=== PATIENT | male | born 1935 | race Caucasian/White ===

== ENCOUNTER → 2017-01-08 | Outpatient (CLI) | payer OTHER ==
[~2017-01-08] MED LIST: ACTOS 30 MG TAB30 M1 PO; COUMADIN 5 MG TA5 M1 PO; DILTIAZEM 24HR240 M1 PO; FISH OIL 1,0001 EAC5 PO; LISINOPRIL40 MG PO; METFORMIN HCL1000 MG PO; MULTIVITAMINS1 EAC7 PO; ONGLYZA5 MG PO; PRAVASTATIN SOD40 MG PO; TAMSULOSIN HCL0.4 M1 PO
== END ==
LOC: RAD 13:06
DX: M25.532 Pain in left wrist (principal); M79.642 Pain in left hand

== ENCOUNTER 2018-07-05 14:01 | Inpatient (IN) | payer OTHER ==
[~2018-07-05] VITALS: Ht 167.6 cm; Wt 74.0 kg
[2018-07-05] VITALS (12 sets, daily range): BP systolic 83–141; BP diastolic 42–74
--- NOTE | ~2018-07-05 | HC ---
[facility] [place] [address] CONSULTATION Name: DILEEP DUBON Room #: 218-P [facility] IN .R.#: [id number] Admission: 07/05/18 ������������������ Attend Phys: Luis Murphy MD Discharge: ������������������ Date of : 35 Report #: [id number] THIS REPORT FOR: //name// CC: Luis Swanson DATE OF SERVICE: 07/06/2018 CONSULTATION: Infectious diseases. HISTORY OF PRESENT ILLNESS: The patient is an 83-year-old white male admitted to the hospital yesterday because of overwhelming weakness to the point he could hardly go to the bathroom to get his medications. In the ER, he was found to be in atrial fibrillation with rapid ventricular response and have evidence of urinary tract infection. Infectious disease consultation was requested when 2 blood cultures were drawn and both were positive as described below. PAST HISTORY: Significant for hypertension, hyperlipidemia in the setting of diabetes. The patient has history of benign prostatic hypertrophy and a past history of bladder cancer. SOCIAL HISTORY: The patient is and cares for his elderly . Denies use of tobacco or alcohol. REVIEW OF SYSTEMS: Unavailable as the patient was asleep and not disturbed. PHYSICAL EXAMINATION: GENERAL: The patient appears to be resting comfortably, in no distress. VITAL SIGNS: Show that the patient has been afebrile. Pulse has gone from 149-93 with treatment. SKIN: No rash, no lesions. CHEST: The patient is breathing easily. ABDOMEN: Belly is not distended. LABORATORY DATA: The white count is 16.2 in the ER and down to 13.6 with 82% polys, 2% bands. There are toxic granulations in Dohle bodies. Hemoglobin 11.2, platelet 213,000. Electrolytes were normal, bicarb was 17, BUN 54, creatinine has gone from 2.0-1.3, glucose 187. Lactate is 2.3, was stable after hydration. Liver function tests are normal. B-type natriuretic peptide was elevated at 6706. The urinalysis showed greater than 25 white cells per high powered field. Urine culture is pending. Blood cultures x 2 were obtained. The first has Gram-positive cocci. The second has gram-negative rods. ASSESSMENT AND PLAN: At this time, I suspect the patient probably has urosepsis with bacteremia due to gram-negative rods. The gram-positive blood cultures in one set most likely represents a contaminant. We will see what the [facility] [address] [address] CONSULTATION Name: DILEEP DUBON Room #: 218-P ADM IN .R.#: [id number] Admission: 07/05/18 ������������������ Attend Phys: Luis Murphy MD Discharge: ������������������ Date of : 35 Report #: [id number] identification is. If it is not Staphylococcus aureus and only present in one set, it is probably not significant. I will order 2 additional blood cultures for tonight and additional cultures if he continues to have fever. Rocephin should be excellent coverage for community-acquired urinary tract infection. The patient seemed to be doing better in the first 24 hours with suggesting that this probably is an active drug. We should have more information when the cultures and sensitivity from urine and blood isolates become available. For now, we will continue the patient on vancomycin plus Rocephin. We will repeat blood cultures. Dr. Burciaga will return tomorrow. He can do a more thorough history and physical examination as I do not want to disturb the patient this late at night. Thank you for this consultation. ��������������������������������������������� ���������������������������������������� By: ��������������������������������������������� 2236 0752 Ollie Quiñonez MD /nt
--- NOTE | ~2018-07-05 | D ---
[facility] [place] [place] [address] DISCHARGE SUMMARY Name: CASEDILEEP Room #: 218-P [facility] IN ..#: [id number] Admission: 07/05/18 ������������������ Attend Phys: Twin Swanson MD Discharge: 07/09/18 ������������������ Date of : 35 Report #: [id number] THIS REPORT FOR: //name// CC: Twin Negrete MD DATE OF SERVICE: 07/09/2018 SUMMARY OF HISTORY AND PHYSICAL: The patient had been busy caring for his sick and demented elderly spouse and kept getting weaker and more tired. He quit taking his medicines for a few days and restarted them. He would stay in bed and sleep all day, wake up the next day and even feel more tired. His family insisted that he come to the hospital for evaluation. In the Emergency Room, he was found to be septic from a urinary tract infection with rapid ventricular response to his atrial fibrillation and required admission. SUMMARY OF HOSPITAL COURSE: He was treated aggressively with IV fluids and IV antibiotics. He was seen in Cardiology consultation by Dr. Umaña because of his rapid atrial fibrillation. His medications were adjusted. A Rg catheter was needed to establish urine flow. He rapidly regained his strength. IMPORTANT LABORATORY DATA: His admitting creatinine was elevated at 2.0 with a BUN of 67. He was given aggressive IV fluids. At discharge, his creatinine had approached baseline at 0.9 with a BUN of 20. His sodium was 130 on admission. His fingerstick blood sugars varied between 138 and 302 managed by sliding scale insulin. The bilirubin was 1.0. His admitting albumin was low at 2.6. Lactic acid was elevated at 2.3 on admission and remained high at 2.3 when rechecked 5 hours later. His INR was mildly low at 1.3 on admission, but therapeutic at 2.1 at discharge. He was managed with Xarelto. Xarelto was given in the hospital for his Atrial Fib, but he has refused it in the past because of its expense. Admitting white blood cell count was elevated at 16.2 thousand, and steadily decreased to 9.8 thousand at discharge. Hemoglobin was 13.8 on admission and 10.7 at discharge. There was a left shift of 90% segmented neutrophils on admission. TSH was 1.146. Hemoglobin A1c was mildly elevated at 7.8. Urinalysis was grossly abnormal with 1+ blood, 1+ leukocytes, many bacteria and [facility] [place] [place] [address] [place] [address] DISCHARGE SUMMARY Name: CASEDILEEP Room #: 218-P DIS IN [facility]#: [id number] Admission: 07/05/18 ������������������ Attend Phys: Twin Swanson MD Discharge: 07/09/18 ������������������ Date of : 35 Report #: [id number] many white blood cells. Arterial blood gas on room air on admission showed a pH of 7.369, his pCO2 was abnormally low at 20.8, bicarbonate was low at 11.7. E. coli sensitive to all drugs was cultured from his urine and from his blood. A gram-positive cocci was cultured from his blood and was felt to be a contaminant. Portable chest x-ray showed aortic atherosclerosis and no other abnormalities. Early in the hospital stay, while standing at the sink and shaving, his heart rate went up to 140 again and his medications were adjusted. At discharge, he was able to stand and shave with a heart rate under 100. Prior to discharge on the morning of discharge, he had 150 mL of urine in his bladder before voiding, and afterwards his bladder was empty. Physical Therapy felt him safe to return home and noted that the patient had both walkers and canes at home. Home health will be arranged. He was seen for a cognitive assessment by Speech Therapy and after his initial presenting confusion, he had cleared with treatment of his infection. Comprehension was 90-100% correct. He scored 26/30 on the Rick Cognitive Assessment. He had mild memory impairment with 80-89% correct recall. DISCHARGE DIAGNOSES: 1. Severe sepsis from urinary tract infection, systemic inflammatory response syndrome with heart rate over 90 (139), respiratory rate over 20 (22), white blood cell count over 12,000 (16,200) with organ dysfunction, blood pressure under 90 (83/43 on admission), lactate over 2 (2.3 on admission and again when repeated 5 hours later) with a suspected/documented infection in the urine. 2. Escherichia coli infection in the urine. 3. Escherichia coli infection in the blood stream. 4. Acute kidney injury with creatinine of 2.0 on admission and 0.9 after recovery. 5. Chronic atrial fibrillation that experienced rapid ventricular response up to 140, managed with medication change. 6. History of hypertension -- however, blood pressure was low in the hospital. 7. History of benign prostatic hypertrophy with retention. 8. Metabolic encephalopathy -- on admission, the patient was confused and not making good choices. Speech Therapy evaluation documented the improvement in his cognition as his infection was controlled. 9. Severe malnutrition with an albumin under 2.8 (albumin 2.6 on admission). 10. Hyperlipidemia. 11. History of bladder cancer x 2. PLAN: The patient is returning home today on cefuroxime 500 mg twice daily for [facility] [place] [place] [address] [place] [address] DISCHARGE SUMMARY Name: DILEEP DUBON Room #: 218-P [facility] IN [facility]#: [id number] Admission: 07/05/18 ������������������ Attend Phys: Twin Swanson MD Discharge: 07/09/18 ������������������ Date of : 35 Report #: [id number] 10 days under the direction of Dr. Burciaga of Infectious Disease service. Home health is Mark at home that the patient has used in the past. He is encouraged to drink more water. MEDICATIONS: Metoprolol succinate is the new medication 50 mg tablets 1-1/2 tablet in the morning. His diltiazem extended release 180 mg that he was taking twice a day is now to be taken just once a day. He is to continue taking warfarin 5 mg daily with monthly protimes in my office. He has previously rejected Xarelto because of its cost. Alfuzosin extended release 10 mg 1 daily, Jardiance 25 mg 1 daily, pravastatin 40 mg 1 daily. He is to stop his metformin, but save his home supply for possible use later. He is to stop his lisinopril (20 mg and 40 mg tablets) for possible use later. He is to continue his fish oil capsules and multiple vitamin tablets. Note is made that it has been many years since he has taken Tradjenta or pioglitazone or tamsulosin, which the computer said were current medications. He is to see me in my office in 1 week and to bring all his medications with him and laboratory will be obtained. ��������������������������������������������� ���������������������������������������� By: ��������������������������������������������� 1918 06 Twin Swanson MD /nt
[2018-07-05 14:19] LABS: URINE BLOOD 1+ (Negative); URINE COLOR YELLOW; URINE GLUCOSE-RANDOM* 3+ (Negative); URINE KETONES TRACE (Negative); URINE NITRITE-REFLEX NEGATIVE (Negative); URINE PROTEIN (DIPSTICK) NEGATIVE (Negative); URINE UROBILINOGEN 0.2 E.U./dl (0.2-1.0)
[2018-07-05 14:20] LABS: URINE CLARITY SL HAZY; URINE LEUKOCYTES-REFLEX 1+ (Negative)
[2018-07-05 14:21] LABS: ICTOTEST (BILI CONFIRMATORY) Negative (Negative); URINE BILIRUBIN NEGATIVE (Negative)
[2018-07-05 14:23] LABS: SQUAMOUS >10 Many /LPF (0-3)
[2018-07-05 14:24] LABS: BACTERIA-REFLEX >30 Many /HPF (None Seen); URINE WBC-REFLEX >25 Many /HPF (0-5)
[2018-07-05 14:25] LABS: CRYSTALS None Seen /LPF (None Seen); HYALINE CASTS 4-10 Moderate /LPF (None Seen); URINE RBC 3-10 Few /HPF (0-2)
[2018-07-05 14:46] LABS: HEMOGLOBIN 13.8 gm/dL (14.0-18.0); MCH 31.4 pg (26.0-34.0); MCHC 33.6 g/dL (28.0-37.0); MCV 93.5 fL (80.0-100.0); PLATELET COUNT 239 thou/uL (150-400); RBC 4.38 mil/uL (4.50-6.00); RDW 13.7 % (10.5-14.5); WBC 16.2 thou/uL (4.0-11.0)
[2018-07-05 15:11] LABS: ANION GAP 20 mmol/L (7-16); BUN 67 mg/dL (7-18); CALCIUM 8.4 mg/dL (8.5-10.1); CHLORIDE 95 mmol/L (98-107); CO2 15 mmol/L (21-32); GLUCOSE 202 mg/dL (74-106); POTASSIUM 4.3 mmol/L (3.5-5.1); SODIUM 130 mmol/L (136-145)
[2018-07-05 15:21] LABS: ALBUMIN 2.6 g/dL (3.4-5.0); SGOT 23 U/L (15-37); SGPT 19 U/L (30-65); TOTAL PROTEIN 6.8 g/dL (6.4-8.2); TROPONIN-I <0.06 ng/mL (<0.06)
[2018-07-05 15:35] LABS: ABSOLUTE NEUTROPHILS 13.6 thou/uL (1.4-8.2); ATYPICAL LYMPHS 1 %
[2018-07-05 15:37] LABS: TOXIC GRANULATION 1+
[2018-07-05 16:10] LABS: INR 1.3; PROTIME 13.1 Seconds (9.3-11.4)
[2018-07-05 19:29] LABS: BE(vivo) -11.2 mmol/L (-2 to +3); HCO3 11.7 mmol/L (22.0-26.0); pH 7.369 (7.360-7.450); sO2 97.6 % (92.0-98.0)
[2018-07-05 19:30] LABS: PCO2 20.8 mmHg (35.0-45.0)
--- NOTE | 2018-07-05 19:52 | NUR ---
ASSUMED CARE OF PT AT APPROX 1700. PT A&OX4, UP WITH ASSIST OF ONE. PT HAD HEART RATE OF [address] AGUILERA ORDERED CARDIZEM DRIP. PT ADMISSION COMPLETED EXCEPT FOR MED REC DUE TO PT NOT KNOWING HIS MEDICATIONS. DAUGHTER MARICRUZ SAID SHE WOULD [facility]ING [facility] L[facility] OR TOMORROW. MEDS FROM PHARMACY SEEN BY DR. AGUILERA. WILL CONT WITH POC
[2018-07-05] MEDS ORDERED: ALFUZOSIN HCL10 MG PO (20:16)
[2018-07-05] MEDS ORDERED: JARDIANCE25 MG PO (20:16)
[2018-07-05] MEDS ORDERED: AMOX TR-K CLV1 EAC4 PO (20:17)
[2018-07-05] MEDS ORDERED: PRAVACHOL40 MG PO (20:17)
[2018-07-05] MEDS ORDERED: CEFDINIR300 MG PO (20:17)
[2018-07-05] MEDS ORDERED: DILT-XR180 MG PO (20:18)
[2018-07-05] MEDS ORDERED: LISINOPRIL20 MG PO (20:18)
[2018-07-06] VITALS (10 sets, daily range): BP systolic 84–144; BP diastolic 44–83
[2018-07-06 05:16] LABS: HEMATOCRIT 35.5 % (42.0-52.0); MCH 30.8 pg (26.0-34.0); MCV 93.3 fL (80.0-100.0); RBC 3.8 mil/uL (4.50-6.00); RDW 13.7 % (10.5-14.5); WBC 13.6 thou/uL (4.0-11.0)
[2018-07-06 05:22] LABS: HEMOGLOBIN 11.7 gm/dL (14.0-18.0)
[2018-07-06 05:31] LABS: ALBUMIN 2.2 g/dL (3.4-5.0); ANION GAP 15 mmol/L (7-16); BUN 54 mg/dL (7-18); CALCIUM 7.3 mg/dL (8.5-10.1); CHLORIDE 102 mmol/L (98-107); CO2 17 mmol/L (21-32); CREATININE 1.3 mg/dL (0.7-1.3); DIRECT BILIRUBIN 0.1 mg/dL (<0.1-0.3); GLUCOSE 155 mg/dL (74-106); INR 1.4; POTASSIUM 3.8 mmol/L (3.5-5.1); PROTIME 14.6 Seconds (9.3-11.4); SGOT 18 U/L (15-37); SGPT 12 U/L (30-65); SODIUM 134 mmol/L (136-145); TOTAL BILIRUBIN 0.6 mg/dL (<0.1-1.0); TOTAL PROTEIN 5.7 g/dL (6.4-8.2); TROPONIN-I <0.06 ng/mL (<0.06)
--- NOTE | 2018-07-06 05:41 | NUR ---
ASSUMED PT'S AT 1905; PT. ON BED AOX4; DAUGHTER AT THE BED SIDE; DURING ASSESSMENT NO C/O PAIN; CARDIZEM TITRATE ACCORDING TO HR & BP; PER ORDER PHYSICIAN NOTIFIED WHEN CARDIZEM AT 20MG/H & HR IN THE 120's-130's; ORDERS RECEIVED; DR. MORALEZ CALLED AT 2150; ORDER RECEIVED; IV & PO LOPRESSOR GIVEN PER ORDER; DR. AGUILERA NOTIFIED ABOUT POST VOID RESIDUAL; ORDERS RECEIVED; AT 0035 PT'S SBP ON THE 80'S; PHYSICIAN NOTIFIED; ORDERS RECEIVED; AT 0335 DR. AGUILERA NOTIFIED ABOUT CATHETER OUTPUT; NO NEW ORDERS; PT. NOT ABLE TO REST THROUGH THE NIGHT; NO C/O DIZZINESS OR HEADACHE; PT. REST FOR A FEW HOURS; AT 0400 SBP ON THE 90'S; AT 0500 SBP 101; WILL KEEP MONITORING; ASSESSMENT CHARGED; FOLLOWING POC; WILL PASS ON REPORT.
--- NOTE | 2018-07-06 12:50 | NUR ---
PT DID NOT REMEMBER TELEMETRY INTERFERENCE CONVERSATION AND LETTER GIVEN TO HIM AT ADMISSION. PT WAS SEPTIC AND ALTHOUGH ABLE TO ANSWER ORIENTATION QUESTIONS ACCURATELY, MAY HAVE NOT COMMPREHENDED ALL CARE PLANS DISCUSSIONS AND TELEMETRY DISCUSSION. TODAY AT 1245 I WENT OVER TELEMETRY AND LETTER WITH PT. I ASKED DAUGHTER, WHO WAS WITH PT AT ADMISSION, IF SHE REMEMBERED CONVERSATION FROM YESTERDAY AND SHE STATED THAT SHE DID. PT SIGNED LETTER FOR THIS NURSE AND WILL BE PLACED IN CHART. WILL CONT TO EDUCATE PT REGARDING TELEMETRY INFERENCE.
--- NOTE | 2018-07-06 13:52 | NUR ---
MEDICATIONS: PT AND FAMILY DO NOT KNOW WHAT MEDS PT IS TAKING. PT STATES HE ONLY GETS HIS MEDS FROM [facility] IN [place]. THAT PHARMACY CALLED AND PT MED LIST UPDATED. PT DOES NOT RECOGNIZE THE NAMES OF MEDS THAT [facility] HAS HIM TAKING, SO PT MAY NOT BE COMPLIANT WITH HIS MEDS. WILL PUT IN CASE MANAGEMENT CONSULT FOR HOME HEALTH FOR MED MANAGEMENT. WILL UPDATE DR. AGUILERA.
--- NOTE | 2018-07-06 16:40 | NUR ---
ASSUMED CARE OF PT AT 0700. PT A&OX4, FORGETFUL. PT SEEN BY DR. MORALEZ AND MEDS ORDERED. PT NOW HAS CONTROLLED RATE AFIB ON TELEMETRY. BLOOD PRESSURE SLIGHTLY LOW AND BEING MONITORED. PT HAD FAMILY VISITING TODAY. SHOWERED WITH ASSISTANCE. PT UNSTEADY WITH MULTIPLE LINES AND FALL PRECAUTIONS MAINTAINED. WILL CONT WITH POC
--- NOTE | 2018-07-06 19:34 | NUR ---
INFECTIOUS DISEASE CONSULT CALLED BY ROENTGENOLOGY TEACHER, BUT NO NOTE LEFT BY ID DOCTOR. I DID NOT OBSERVE AN ID DOCTOR ON THE UNIT TODAY. WILL CALL CONSULT AGAIN.
--- NOTE | 2018-07-06 22:39 | EKG ---
[address] [place] [address] ELECTROCARDIOGRAM REPORT Name: DILEEP DUBON Room #: 218-P ADM IN M.R.#: [id number] ������������������ Admission: 07/05/18 ������������������ Attend Phys: Luis Murphy MD Discharge: ������������������ Date of : 35 Report #: [id number] ����������������������������������������������������������������� [id number] THIS REPORT FOR: //name// [facility] [place] [place] ED Test Date: 2018-07-05 Test Time: 14:28:02 Pat Name: DILEEP DUBON Department: Room: 218 Gender: M Manager Of Case: PABLO : 1935 Requested By: Sheri Pizarro Order Number: [id number] MD: Duy Burciaga Measurements Intervals [place] Rate: 152 P: IN: QRS: 59 QRSD: 136 T: -40 QT: 316 QTc: 503 Interpretive Statements Atrial fibrillation with RVR Right bundle branch block No previous ECG available for comparison Electronically Signed On 07-06-2018 22:39:31 CDT by Duy Burciaga [email or web address] ��������������������������������������������� <ELECTRONICALLY SIGNED> ���������������������������������������� By: Duy Burciaga MD ��������������������������������������������� 07/06/18 2239 1428 1428 MD PARIS Boyle
--- NOTE | 2018-07-06 22:42 | EKG ---
[address] [address] ELECTROCARDIOGRAM REPORT Name: DILEEP DUBON Room #: 218-P ADM IN M.R.#: [id number] ������������������ Admission: 07/05/18 ������������������ Attend Phys: Luis Murphy MD Discharge: ������������������ Date of : 35 Report #: [id number] ����������������������������������������������������������������� [id number] THIS REPORT FOR: //name// [facility] Test Date: 2018-07-06 Test Time: 07:51:11 Pat Name: DILEEP DUBON Department: Room: 218 P Gender: M Staff Climate Scientist: DOREEN : 1935 Requested By: Mayank Umaña Order Number: [id number] MD: Duy Burciaga Measurements Intervals [place] Rate: 124 P: SD: QRS: 43 QRSD: 141 T: -20 QT: 357 QTc: 513 Interpretive Statements Atrial fibrillation Right bundle branch block Baseline wander in lead(s) V1 No previous ECG available for comparison Electronically Signed On 07-06-2018 22:42:40 CDT by Duy Burciaga [email or web address] ��������������������������������������������� <ELECTRONICALLY SIGNED> ���������������������������������������� By: Duy Burciaga MD ��������������������������������������������� 07/06/18 2242 075 075 Duy Burciaga MD /IRLANDA
[2018-07-06 22:53] LABS: HEMOGLOBIN 12.3 gm/dL (14.0-18.0); MCH 30.7 pg (26.0-34.0); MCHC 33.3 g/dL (28.0-37.0); MCV 92.2 fL (80.0-100.0); PLATELET COUNT 234 thou/uL (150-400); RBC 4.01 mil/uL (4.50-6.00); RDW 13.7 % (10.5-14.5)
[2018-07-06 23:14] LABS: CALCIUM 8.1 mg/dL (8.5-10.1); CREATININE 1.1 mg/dL (0.7-1.3); POTASSIUM 3.6 mmol/L (3.5-5.1)
[2018-07-06 23:17] LABS: ABSOLUTE NEUTROPHILS 10.9 thou/uL (1.4-8.2)
[2018-07-07 01:11] VITALS: BP 137/44
[2018-07-07 04:30] VITALS: BP 131/62
[2018-07-07 05:07] LABS: HEMATOCRIT 34.5 % (42.0-52.0); HEMOGLOBIN 11.7 gm/dL (14.0-18.0); MCH 31.3 pg (26.0-34.0); MCHC 33.9 g/dL (28.0-37.0); MCV 92.2 fL (80.0-100.0); PLATELET COUNT 227 thou/uL (150-400); RBC 3.74 mil/uL (4.50-6.00); RDW 13.5 % (10.5-14.5); WBC 11.4 thou/uL (4.0-11.0)
[2018-07-07 05:25] LABS: INR 1.6; PROTIME 16.2 Seconds (9.3-11.4)
[2018-07-07 05:32] LABS: CALCIUM 7.6 mg/dL (8.5-10.1); POTASSIUM 3.5 mmol/L (3.5-5.1)
[2018-07-07 07:48] LABS: ABSOLUTE NEUTROPHILS 9.8 thou/uL (1.4-8.2); ANISOCYTOSIS 1+; METAMYELOCYTES 2 %; MYELOCYTES 2 %
--- NOTE | 2018-07-07 07:54 | NUR ---
ASSUME CARE 1900. PT/VITALS STABLE. DENIES ANY PAIN AT THIS TIME. UP TO BATHROOM WITH WALKER. JIMENEZ IN WITH COPIOUS AMOUNT OF URINE NOTED. ADDEQUATE REST NOTED. COMMUNICATED TO DAY NURSE FOR THE NEED FOR BLOOD CULTURES X 2 WITHIN 15 MINS APART IF TEMP GOES ABOVE 101.0. ASSESSMENT CHARTED. PROGRESSING WELL WITH POC. PLAN IS TO CONTINUE TO TREAT WITH ABX, CONTINUE TO RUN FLUIDS AND MONITOR HEART RATE AND RHYTHM. WILL CONTINUE TO FOLLOW WITH POC
[2018-07-07 08:00] VITALS: BP 132/83
--- NOTE | 2018-07-07 11:17 | H ---
[facility] [place] [address] HISTORY AND PHYSICAL Name: DILEEP DUBON Room #: 218-P ADM IN .R.#: [id number] Admission: 07/05/18 ������������������ Attend Phys: Luis Murphy MD Discharge: ������������������ Date of : 35 Report #: [id number] THIS REPORT FOR: //name// CC: Luis Negrete MD DATE OF SERVICE: 07/05/2018 CHIEF COMPLAINT: "I feel weak and tired." HISTORY OF PRESENT ILLNESS: The patient is an 83-year-old white male who has recently been caring for a sick and demented elderly spouse and noticed in the last several days that he had been getting weaker and more tired. He quit taking his medicines for a few days, but finally restarted them yesterday. Because he was too tired to get out of bed to even take himself to the bathroom, his grandchildren and children insisted that he come to the hospital for further evaluation and treatment. In the Emergency Room, he was found to have elevated lactic acid levels and atrial fibrillation with rapid ventricular response in the setting of significant pyuria. He was felt to have sepsis and was admitted for further evaluation and treatment. His white count is also elevated in the 16,000 range. PAST MEDICAL HISTORY: Type 2 diabetes mellitus, hypertension, hyperlipidemia, benign prostate hypertrophy, history of bladder cancer status post surgeries x 2, he has a remote history of ear surgeries and has had recurrent ear infections ever since, over the years. FAMILY HISTORY: Not contributory. SOCIAL HISTORY: He is retired, lives with his and present during the visit today is his daughter. He is a nonsmoker, nondrinker. He does not use recreational drugs. REVIEW OF SYSTEMS: He denies chest pain or shortness of breath, but really feels tired with the slightest exertion. He denies any trauma or falls. He denies any mental status issues or hallucinations. No swelling in his arms or legs. No back pain. No difficulties with urination lately. He denies feeling sick, other than just being tired easily. His nurse brought to my attention that when the patient had been brought in, he had soiled himself with stool and urine and was unaware. PHYSICAL EXAMINATION: VITAL SIGNS: In the Emergency Room, vital signs showed a pulse oximetry of 96% on room air with blood pressure of 83/43, pulse of 93, temperature of [address] [address] HISTORY AND PHYSICAL Name: DILEEP DUBON Room #: 218-P [facility] IN .R.#: [id number] Admission: 07/05/18 ������������������ Attend Phys: Luis Murphy MD Discharge: ������������������ Date of : 35 Report #: [id number] centigrade, and respiratory rate of 16. The reported weight was 156 pounds. GENERAL: This is a pleasant, slightly unkempt, elderly white male with a pleasing personality. HEENT: The extraocular muscles are intact. Oropharynx is dry and pink without lesions or exudates. SKIN: Notably pale and this is confirmed by his daughter who was also present during exam. NECK: Without adenopathy, thyromegaly, mass, JVD or bruit. LUNGS: Fairly clear bilaterally. CARDIAC: Reveals an irregularly irregular tachycardia. ABDOMEN: Soft. Bowel sounds are present, no visceromegaly or masses. Spine is nontender without lesions or pressure wounds. EXTREMITIES: Without cyanosis or clubbing or peripheral edema. Peripheral pulses are easily palpated in all four distal extremities. His peripheral pulses are slightly thready. ASSESSMENT AND PLAN: 1. Suspected sepsis due to urinary tract infection as evidenced by hypotension, tachycardia, leukocytosis, malaise and elevated lactic acid level. I agree with the Emergency Room physician's plan to start the patient on antibiotics and aggressive rehydration. I note the patient has been given 2 liters of saline in the ER and I will continue IV fluids on the CCU. The patient needs to have better rate control so as to improve his cardiac output, especially in a possible setting of sepsis and we will start him on the diltiazem drip rather than bolusing him and then titrate for rate control as able. The patient needs to have an arterial blood gas ordered on room air. Since he is already on oxygen that will be delayed 20 minutes after he take the oxygen off. Prognosis is guarded at this time. 2. Type 2 diabetes mellitus with elevated serum creatinine of 2.0 today and lactic acidosis. I will hold the metformin for now. It is not clear that this is necessarily the cause of his lactic acidosis. It does appear that his renal function is acutely worsened and he can be adequately maintained with insulin injections until such time as his baseline renal function is reestablished and is good. 3. Hypertension history - I will hold the YOSHI inhibitor, lisinopril for now because of his rising creatinine. Given the known benefits for diabetic patients, this will need to be resumed in the near future. 4. Benign prostate hypertrophy. We will continue the patient on alpha norma therapy. 5. History of bladder cancer x 2, for which he follows with Dr. Newton Negrete. 6. History of ear infections. He feels that the symptoms today are emanating from his left ear and on exam that side showed a much more dull tympanic membrane, although both tympanic membranes are white. The right tympanic membrane is shiny. Neither exam was marked by any erythema or tenderness or adenopathy. 7. As I do not know this patient that well, I suspect he minimizes his somatic [facility] [address] [place] [address] HISTORY AND PHYSICAL Name: CASE,DILEEP Lynch Room #: 218-P ADM IN M.R.#: [id number] Admission: 07/05/18 ������������������ Attend Phys: Luis Murphy MD Discharge: ������������������ Date of : 35 Report #: [id number] symptoms in favor of caring for the medical problems that his has. I will discuss this case further with Dr. Swanson after the weekend. For now, we will maintain a very cautious approach and aggressive monitoring. ��������������������������������������������� <ELECTRONICALLY SIGNED> ���������������������������������������� By: Luis Murphy MD ��������������������������������������������� 07/07/18 1117 1823 193 Luis Murphy MD /nt
[2018-07-07 12:24] VITALS: BP 121/52
--- NOTE | 2018-07-07 12:26 | 2DMMODE ---
[facility] [address] [place] [address] 2 D/M-MODE ECHOCARDIOGRAM Name: CASEDILEEP Room #: 218-P [facility]#: [id number] ������������� Admission: 07/05/18 ������������� Attend Phys: Twin Swanson, Discharge: ��� ������������� ��� Date of : 35 Date of Service: 07/07/18 1225 �� Report #: [id number] �������� ��������������������������������������������[id number] THIS REPORT FOR: //name// APPROVED REPORT Study performed: 07/07/2018 08:07:21 EXAM: Comprehensive 2D, Doppler, and color-flow Echocardiogram Patient Location: Bedside Room #: 218 Status: routine BSA: 1.79 HR: 105 bpm BP: 131/62 mmHg Rhythm: Atrial Fibrillation Other Information Study Quality: Adequate Indications Diabetes Atrial Fibrillation Hypertension/HDD 2D Dimensions RVDd: 36.04 mm IVSd: 13.08 (7-11mm) LVOT Diam: 21.99 (18-24mm) LVDd: 39.00 mm PWd: 10.13 (7-11mm) Ascending Ao: 29.63 (22-36mm) LVDs: 24.73 (25-40mm) Aortic Root: 33.26 mm IVC: 13.00 mm Volumes Left Atrial Volume (Systole) Single Plane 4CH: 70.16 mL Single Plane 2CH: 82.25 mL LA ESV Index: 46.00 mL/m2 Aortic Valve AoV Peak James.: 1.14 m/s AO Peak Gr.: 5.21 mmHg LVOT Max P.93 mmHg LVOT Max V: 0.86 m/s ELIZABETH Vmax: 2.84 cm2 Mitral Valve MV Decel. Time: 154.53 ms [facility] [address] [place] [address] 2 D/M-MODE ECHOCARDIOGRAM Name: DIELEP DUBON Room #: 218-P [facility]#: [id number] ������������� Admission: 07/05/18 ������������� Attend Phys: Twin Swanson, Discharge: ��� ������������� ��� Date of : 35 Date of Service: 07/07/18 1225 �� Report #: [id number] �������� ��������������������������������������������[id number] MV E Max James.: 0.96 m/s IVRT: 89.20 ms Pulmonary Valve PV Peak James.: 0.92 m/s PV Peak Gr.: 3.44 mmHg Tricuspid Valve TR Peak James.: 2.93 m/s RAP Estimate: 5.00 mmHg TR Peak Gr.: 34.25 mmHg PA Pressure: 39.00 mmHg Left Ventricle The left ventricle is normal size. There is normal left ventricular wall thickness. The left ventricular systolic function is normal. The left ventricular ejection fraction is within the normal range. LVEF is 60-65%. This study is not technically sufficient to allow evaluation of the LV diastolic function due to atrial fibrillation. Right Ventricle The right ventricle is normal size. The right ventricular systolic function is normal. Atria Left atrium is moderately dilated. Right atrium is mildly dilated. Aortic Valve The aortic valve is normal in structure. Mild aortic regurgitation. There is no aortic valvular stenosis. Mitral Valve The mitral valve is normal in structure. There is no mitral valve regurgitation noted. No evidence of mitral valve stenosis. Tricuspid Valve The tricuspid valve is normal in structure. Mild tricuspid regurgitation. PAP is estimated at 39 mmHg. Pulmonic Valve The pulmonary valve is normal in structure. There is no pulmonic valvular regurgitation. Great Vessels The aortic root is normal in size. IVC is normal in size and collapses >50% with inspiration. [facility] [address] [place] [address] 2 D/M-MODE ECHOCARDIOGRAM Name: CASE,DILEEP Lynch Room #: 218-P ADM IN ..#: [id number] ������������� Admission: 07/05/18 ������������� Attend Phys: Twin Swanson, Discharge: ��� ������������� ��� Date of : 35 Date of Service: 07/07/18 1225 �� Report #: [id number] �������� ��������������������������������������������[id number] Pericardium Trace pericardial effusion. <Conclusion> The left ventricle is normal size. LVEF is 60-65%. This study is not technically sufficient to allow evaluation of the LV diastolic function due to atrial fibrillation. The right ventricle is normal size. Left atrium is moderately dilated. Right atrium is mildly dilated. Mild aortic regurgitation. There is no mitral valve regurgitation noted. Mild tricuspid regurgitation. PAP is estimated at 39 mmHg. The aortic root is normal in size. Trace pericardial effusion. ��������������������������������������������� <ELECTRONICALLY SIGNED> ���������������������������������������� By: Mayank Umaña MD, FACC ��������������������������������������������� 07/07/18 1225 1225 1225 Mayank Umaña MD, FACC /INF
[2018-07-07 13:08] LABS: GLYCOHEMOGLOBIN (HGB A1C) 7.8 % (4.8-5.6)
--- NOTE | 2018-07-07 14:24 | NUR ---
Met with patient and at bedside. recently dc from [facility]. Patient reports he/ live together in home with all needs on one level. Patient reports independent with adls and self care. he cont to drive. He reports he takes his medications independently and uses a pill box. He reports he checks his medications as well. RN mentioned HH may be beneficial for medication monitor initially from hospital but patient denies need at this time. Casemgt following for dc planning.
--- NOTE | 2018-07-07 15:12 | NUR ---
PT IS ALERT AND ORIENTED X4. LUNGS ARE CLEAR ON ROOM AIR. AFIB ON THE MONITOR REGULAR DIET TOLERATING WELL. JIMENEZ CATH TO DD WITH CLEAR YELLOW URINE PRESENT. ASSIST X1 WITH AMBULATION. ABDOMEN IS ROUND AND SOFT. NO ISSUES OR CONCERNS NOTED AT THIS TIME WITH CARE OF PT AND NURSING CARE. CALL LIGHT WITHIN REACH IF NEEDS ASSISTANCE
[2018-07-07 16:00] VITALS: BP 126/60
[2018-07-07 20:00] VITALS: BP 145/52
--- NOTE | 2018-07-08 03:29 | NUR ---
ASSUMED PT CARE AT 1900. PT A/OX4, FORGETFUL, VITAL SIGN STABLE, ASSESSMENT CHARTED. NO COMPLAINTS OF PAIN/CHEST PAIN. PT AFIB ON THE MONITOR, RATE CONTROLLED. MEDS ADMINISTERED SCHEDULED. PT RESTED WELL THROUGH THE NIGHT. PROGRESSING TOWARD PLAN OF CARE. WILL CONTINUE TO MONITOR.
[2018-07-08 04:00] VITALS: BP 130/57
[2018-07-08 04:01] LABS: HEMATOCRIT 31.7 % (42.0-52.0); HEMOGLOBIN 10.7 gm/dL (14.0-18.0); MCH 31.4 pg (26.0-34.0); MCHC 33.8 g/dL (28.0-37.0); PLATELET COUNT 228 thou/uL (150-400); RBC 3.41 mil/uL (4.50-6.00); RDW 13.6 % (10.5-14.5); WBC 9.8 thou/uL (4.0-11.0)
[2018-07-08 04:05] LABS: PROTIME 21.2 Seconds (9.3-11.4)
[2018-07-08 04:19] LABS: ALBUMIN 1.9 g/dL (3.4-5.0); CALCIUM 7.7 mg/dL (8.5-10.1); CREATININE 0.9 mg/dL (0.7-1.3); POTASSIUM 3.4 mmol/L (3.5-5.1); TOTAL BILIRUBIN 0.3 mg/dL (<0.1-1.0); TOTAL PROTEIN 5.1 g/dL (6.4-8.2)
[2018-07-08 06:34] LABS: ABSOLUTE NEUTROPHILS 6.9 thou/uL (1.4-8.2)
[2018-07-08 06:35] LABS: ANISOCYTOSIS 1+; PLATELET ESTIMATE NORMAL; POLYCHROMASIA 1+
[2018-07-08 06:36] LABS: LARGE PLATELETS FEW
[2018-07-08 07:44] VITALS: BP 150/79
[2018-07-08 15:07] VITALS: BP 100/45
--- NOTE | 2018-07-08 18:14 | NUR ---
FOR DR. DE LA O: AT 1800, PT URINATED 200ML, BLADDER SCANNED AND HAD 22ML RESIDULE.
[2018-07-08 19:34] VITALS: BP 127/84
--- NOTE | 2018-07-08 19:37 | NUR ---
ASSUMED CARE OF PT AT 0700. PT A&OX4, UP WITH WALKER AND STANDBY. PT VITAL SIGNS WITHIN NORMAL LIMITS. PT AFIB ON TELEMETRY WITH CONTROLLED RATE. OCCUPATIONAL THERAPY HAD PT UP IN BATHROOM AND PT'S HEART RATE UP IN 150'S. ONE TIME LOPRESSER IV PUSH GIVEN AND METOPROLOL PO DOSAGE INCREASED (ORDER PER KRIT). PT AMBULATED HALLWAYS AFTER LUNCH AND HEART RATE IN LOW 100'S. WILL CONT WITH POC. RE-REVIEWED TELEMETRY LETTER WITH PT.
--- NOTE | 2018-07-09 03:31 | NUR ---
ASSUMED PT CARE AT 1900. A/OX4, OCCASSIONALLY FORGETFUL. VITAL SIGNS STABLE, ASSESSMENT CHARTED. NO COMPLAINTS OF PAIN. RESTED WELL THROUGH THE NIGHT. MEDICATIONS GIVEN SCHEDULED. PROGRESSING TOWARD PLAN OF CARE. WILL CONTINUE TO MONITOR.
[2018-07-09 04:52] VITALS: BP 135/55
[2018-07-09 04:52] LABS: INR 2.1
--- NOTE | 2018-07-09 06:09 | NUR ---
DR. DE LA O, PT VOIDED AT ABOUT 0508. PRE-VOID BLADDER SCAN WAS 146ML. POST-VOID BLADDER SCAN WAS 0.0ML.
[2018-07-09 08:31] VITALS: BP 135/63
[2018-07-09 10:55] VITALS: BP 119/66
--- NOTE | 2018-07-09 14:47 | NUR ---
MET WITH PATIENT AND DISCUSSED THERAPY EVALS AND POSSIBLE HH AT [place]. PATIENT DOES NOT FEEL HE NEEDS HH CARE BUT AGREEABLE TO REC IF ORDERED. NO PREFERENCE [facility] TO EVAL.
[2018-07-09 15:25] VITALS: BP 105/87
--- NOTE | 2018-07-09 16:07 | NUR ---
ASSESSMENT CHARTED - MEDS PER MAR - NO CO'S OF PAIN OR NAUSEA. EMILIE DIET AND FLUIDS. UP WITH STBY ASSIST TO THE BATHROOM - UP IN THE CHAIR. ACCUCHECKS CHARTED - COVERED PER SSI PRN. NO CO'S AT THE PRESENT TIME, STATES COMFORTABLE.
[2018-07-09 16:50] VITALS: BP 105/87
--- NOTE | 2018-07-09 16:52 | NUR ---
PT TO DISCHARGE TODAY TO HOME WITH HH NOTIFIED [facility] OF REFERRAL AND THEY DO NOT SERVICE [place]. FAXED REFERRAL TO [facility] SPOKE WITH NATALIA AND SHE RECEIVED REFERRAL AND CAN ACCEPT PT AT DC. DCP TO FAX DC ORDERS ONCE FINALIZED.
[2018-07-09] MEDS ORDERED: METOPROLOL SUCC50 MG PO (17:13)
[2018-07-09] MEDS ORDERED: DILTIAZEM ER180 MG PO (17:13)
[2018-07-09] MEDS ORDERED: CEFUROXIME500 MG PO (17:17)
[2018-07-09 17:50] VITALS: BP 105/87
--- NOTE | 2018-07-09 18:29 | NUR ---
PT HOME THIS EVEINING. INSTRUCTION RE HOME MEDS/ CARE AND FOLLOW UP GIVEN TO PATIENT AND DAUGHTER - STATED UNDERSTANDING ON INSTRUCTION GIVEN. PT LEFT UNIT VIA WHEELCHAIR- HOME VIA PVT VEHICLE ACCOMAPANIED BY DAUGHTER - MONITOR AND IV REMOVED PRIOR TO D/C. NO CO'S AT TIME OF D/C.
--- NOTE | 2018-07-10 13:30 | NUR ---
PT DISCHARGED LATE YESTERDAY AFTER DCP LEFT FOR THE DAY. FAXED DC ORDERS/SUMMARY TO [facility] SPOKE WITH NATALIA IN INTAKE SHE RECEIVED DC ORDERS AND WILL SEE PT TODAY.
== END 2018-07-09 18:41 | disposition home health service (06) | DRG 871 ==
LOC: ER 14:01 → EROBS 15:49 → 2N 15:49 → ENTRNSPT 07-09 18:28 → 2N 07-09 18:41
PROVIDERS: Emergency Medicine; Internal Medicine; Internal Medicine Infectious Disease; Physician Assistant; ADMIT Internal Medicine
DX: A41.51 Sepsis due to Escherichia coli [E. coli] (principal); G93.41 Metabolic encephalopathy; E43 Unspecified severe protein-calorie malnutrition; N12 Tubulo-interstitial nephritis, not specified as acute or chronic; N17.9 Acute kidney failure, unspecified; R65.20 Severe sepsis without septic shock; F03.90 Unspecified dementia, unspecified severity, without behavioral disturbance, psychotic disturbance, mood disturbance, and anxiety; H66.92 Otitis media, unspecified, left ear; I12.9 Hypertensive chronic kidney disease with stage 1 through stage 4 chronic kidney disease, or unspecified chronic kidney disease; E11.22 Type 2 diabetes mellitus with diabetic chronic kidney disease; N18.9 Chronic kidney disease, unspecified; I48.2 Chronic atrial fibrillation; N40.0 Benign prostatic hyperplasia without lower urinary tract symptoms; E78.5 Hyperlipidemia, unspecified; E78.00 Pure hypercholesterolemia, unspecified; Z79.01 Long term (current) use of anticoagulants; Z79.84 Long term (current) use of oral hypoglycemic drugs; Z79.899 Other long term (current) drug therapy; Z87.891 Personal history of nicotine dependence; Z68.26 Body mass index [BMI] 26.0-26.9, adult; Z85.51 Personal history of malignant neoplasm of bladder
CPT/HCPCS: 10081

== ENCOUNTER 2019-02-09 11:45 | Emergency (ER) | payer OTHER ==
[~2019-02-09] VITALS: Ht 167.6 cm; Wt 69.0 kg
[~2019-02-09 11:45] MED LIST changes: +ALFUZOSIN HCL10 MG PO; +AMOX TR-K CLV1 EAC4 PO; +CEFDINIR300 MG PO; +CEFUROXIME500 MG PO; +DILT-XR180 MG PO; +DILTIAZEM ER180 MG PO; +JARDIANCE25 MG PO; +LISINOPRIL20 MG PO; +METOPROLOL SUCC50 MG PO; +PRAVACHOL40 MG PO
[2019-02-09 13:00] VITALS: BP 95/50
[2019-02-09 13:03] LABS: ABSOLUTE NEUTROPHILS 9.6 thou/uL (1.4-8.2); BASOPHILS 0.5 % (0.0-2.0); EOSINOPHILS 0.3 % (0.0-3.0); HEMATOCRIT 36.7 % (42.0-52.0); LYMPHOCYTES 11.6 % (24.0-44.0); MCH 30.4 pg (26.0-34.0); MCHC 32.8 g/dL (28.0-37.0); MCV 92.9 fL (80.0-100.0); MONOCYTES 8.6 % (1.0-8.0); PLATELET COUNT 275 thou/uL (150-400); RBC 3.95 mil/uL (4.50-6.00); RDW 14.4 % (10.5-14.5); WBC 12.2 thou/uL (4.0-11.0)
[2019-02-09 13:08] LABS: ANION GAP 13 mmol/L (7-16); BUN 29 mg/dL (7-18); CALCIUM 9.5 mg/dL (8.5-10.1); CHLORIDE 98 mmol/L (98-107); CO2 21 mmol/L (21-32); CREATININE 1.4 mg/dL (0.7-1.3); GLUCOSE 276 mg/dL (74-106); POTASSIUM 4.4 mmol/L (3.5-5.1); SODIUM 132 mmol/L (136-145)
[2019-02-09 13:14] LABS: ALBUMIN 3.2 g/dL (3.4-5.0); SGOT 18 U/L (15-37); SGPT 20 U/L (30-65); TOTAL BILIRUBIN 1.4 mg/dL (<0.1-1.0)
[2019-02-09 13:16] LABS: SALICYLATE < 2.8 mg/dL (2.8-20.0)
[2019-02-09 13:25] LABS: APTT 31.8 Seconds (24.5-32.8); INR 1.5; PROTIME 15.4 Seconds (9.3-11.4)
[2019-02-09] MEDS ORDERED: TRAMADOL 50 MG50 MG PO (14:00)
== END 2019-02-09 14:35 | disposition home or self-care (01) ==
LOC: ER 11:45
PROVIDERS: Emergency Medicine
DX: S40.011A Contusion of right shoulder, initial encounter (principal); D64.9 Anemia, unspecified; I48.20 Chronic atrial fibrillation, unspecified; D68.318 Other hemorrhagic disorder due to intrinsic circulating anticoagulants, antibodies, or inhibitors; E11.22 Type 2 diabetes mellitus with diabetic chronic kidney disease; I12.9 Hypertensive chronic kidney disease with stage 1 through stage 4 chronic kidney disease, or unspecified chronic kidney disease; N18.9 Chronic kidney disease, unspecified; E78.00 Pure hypercholesterolemia, unspecified; Z87.891 Personal history of nicotine dependence; W18.39XA Other fall on same level, initial encounter; Y93.89 Activity, other specified; Y92.89 Other specified places as the place of occurrence of the external cause; Y99.8 Other external cause status

== ENCOUNTER 2019-03-26 10:40 | Inpatient (IN) | payer OTHER ==
[~2019-03-26] VITALS: Ht 160 cm; Wt 69.5 kg
[~2019-03-26 10:40] MED LIST changes: +TRAMADOL 50 MG50 MG PO
[2019-03-26 10:45] VITALS: BP 116/68
[2019-03-26 11:10] LABS: ABSOLUTE NEUTROPHILS 7.1 thou/uL (1.4-8.2); BASOPHILS 0.5 % (0.0-2.0); EOSINOPHILS 1.8 % (0.0-3.0); HEMATOCRIT 37.4 % (42.0-52.0); HEMOGLOBIN 12.1 gm/dL (14.0-18.0); LYMPHOCYTES 16.5 % (24.0-44.0); MCH 30.8 pg (26.0-34.0); MCHC 32.4 g/dL (28.0-37.0); MCV 94.9 fL (80.0-100.0); PLATELET COUNT 330 thou/uL (150-400); POLYS 73.2 % (36.0-66.0); RBC 3.94 mil/uL (4.50-6.00); RDW 14.9 % (10.5-14.5); WBC 9.7 thou/uL (4.0-11.0)
[2019-03-26 11:19] LABS: ANION GAP 12 mmol/L (7-16); BUN 48 mg/dL (7-18); CALCIUM 9.4 mg/dL (8.5-10.1); CHLORIDE 103 mmol/L (98-107); CO2 22 mmol/L (21-32); CREATININE 1.4 mg/dL (0.7-1.3); GLUCOSE 170 mg/dL (74-106); POTASSIUM 4.8 mmol/L (3.5-5.1); SODIUM 137 mmol/L (136-145)
[2019-03-26 11:21] LABS: APTT 29.9 Seconds (24.5-32.8); INR 1.1; PROTIME 11.6 Seconds (9.3-11.4)
[2019-03-26 11:29] LABS: ALBUMIN 2.7 g/dL (3.4-5.0); SGOT 25 U/L (15-37); SGPT 24 U/L (30-65); TOTAL BILIRUBIN 0.9 mg/dL (<0.1-1.0); TOTAL PROTEIN 7.5 g/dL (6.4-8.2); TROPONIN-I <0.06 ng/mL (<0.06)
[2019-03-26 13:02] LABS: URINE BILIRUBIN NEGATIVE (Negative); URINE BLOOD NEGATIVE (Negative); URINE CLARITY CLEAR; URINE COLOR YELLOW; URINE GLUCOSE-RANDOM* 2+ (Negative); URINE KETONES 1+ (Negative); URINE LEUKOCYTES-REFLEX NEGATIVE (Negative); URINE NITRITE-REFLEX NEGATIVE (Negative); URINE PROTEIN (DIPSTICK) NEGATIVE (Negative); URINE SPECIFIC GRAVITY <= 1.005 (1.005-1.035); URINE UROBILINOGEN 0.2 E.U./dl (0.2-1.0)
[2019-03-26 15:45] VITALS: BP 119/58
[2019-03-26 16:17] VITALS: BP 124/64
--- NOTE | 2019-03-26 19:41 | NUR ---
PT admitted from ER for CVA and A-FIB, pt is aphasia ,but pt can follow commands, pt is continuing diltiazem 10mg/hr, pt's VS are stable, RN has called DR, new order received, PT's haed MRI has done, RN will report to next shift to keep eye on pt.
[2019-03-26 20:10] VITALS: BP 135/68
[2019-03-26 23:15] VITALS: BP 123/57
[2019-03-26 23:30] VITALS: BP 123/57
[2019-03-27] VITALS (17 sets, daily range): BP systolic 103–147; BP diastolic 46–84
[2019-03-27 06:21] LABS: HEMATOCRIT 36.4 % (42.0-52.0); HEMOGLOBIN 11.9 gm/dL (14.0-18.0); MCH 31.3 pg (26.0-34.0); MCHC 32.7 g/dL (28.0-37.0); MCV 95.9 fL (80.0-100.0); RBC 3.8 mil/uL (4.50-6.00); WBC 10.8 thou/uL (4.0-11.0)
[2019-03-27 06:53] LABS: ALBUMIN 2.5 g/dL (3.4-5.0); CALCIUM 8.3 mg/dL (8.5-10.1); POTASSIUM 4.4 mmol/L (3.5-5.1); TOTAL BILIRUBIN 0.9 mg/dL (<0.1-1.0); TOTAL PROTEIN 6.9 g/dL (6.4-8.2)
--- NOTE | 2019-03-27 08:35 | NUR ---
PT MAKING SLOW PROGRESS TOWARDS GOALS. JIMENEZ PLACED PT WAS UNABLE TO INITIATE A URINE STREAM EVEN WITH STANDING. JIMENEZ PLACED PER DOC ORDER. SEE [facility]. PT IN AFIB PER TELEMETRY, CARDIZEM GTT INITIATED PER ER. NEURO INITIALLY SET A GOALS SBP OF 140 OR GREATER. AFIB RATES 110'S TO INTO THE 150'S OVERNIGHT. PATTERN WAS VERY LABILE THROUGHOUT THE NIGHT. GTT STOPPED DUE TO LOW BP. IVF GIVEN ALONG WITH NS BOLUS. [facility] SCORES REMAINED THE SAME THROUGHOUT THE NIGHT. SPOKE AGAIN WITH NEURO THAT ORDERED NEW GOAL SBP OF 120 OR GREATER FOR PATIENT. ABLE TO TITRATE UP ON CARDIZEM GTT WITH HEART GRADUALLY DECREASING. REPORT GIVEN TO DAY RN.
[2019-03-27 08:48] LABS: CHOLESTEROL 129 mg/dL (<200); HDL CHOLESTEROL 36 mg/dL (>40); LDL CHOLESTEROL 81 mg/dL (<100); TC:HDL 3.6 Ratio (Not establshd); TRIGLYCERIDE 61 mg/dL (<150); VLDL 12 mg/dL (<40)
--- NOTE | 2019-03-27 12:32 | NUR ---
PATIENT SEEN THIS DATE BY ANGELO MERCEDES NP WITH DR. STEWART. PATIENT MAY BE A GOOD CANDIDATE FOR ACUTE REHAB. AWAITING THERAPY EVALUATIONS. PATIENT WILL NEED INSURANCE AUTHORIZATION IF APPROPRIATE. THANK YOU FOR THIS REFERRAL.
[2019-03-27 23:08] LABS: GLYCOHEMOGLOBIN (HGB A1C) 7.4 % (4.8-5.6)
[2019-03-28] VITALS (7 sets, daily range): BP systolic 132–156; BP diastolic 58–98
--- NOTE | 2019-03-28 04:49 | NUR ---
PATIENT IS PROGRESSING SLOWLY IN HIS CARE PLAN. VITAL SIGNS STABLE WITH PATIENT HAVING NO COMPLAINTS OF PAIN OR NAUSEA. PATIENT IS ALERT AND MOSTLY ORIENTED, BUT STRUGGLES WITH COMMUNICATION DUE TO EXPRESSIVE APHASIA. ATRIAL FIBRILLATION RATE CONTROLLED THROUGHOUT SHIFT. PATIENT IS ADHERING TO NPO STATUS WITH HIM AND FAMILY ANXIOUS FOR SPEECH THERAPY EVALUATION HOPEFULLY SOON. UP WITH ASSISTANCE INCIDENT FREE. CONTINUE PLAN OF CARE.
--- NOTE | 2019-03-29 03:44 | NUR ---
PATIENT IS PROGRESSING SLOWLY IN HIS CARE PLAN. VITAL SIGNS STABLE WITH PATIENT HAVING NO COMPLAINTS OF PAIN OR NAUSEA. MOSTLY ORIENTED, PATIENT IS UNABLE TO COMMUNICATE NEEDS APPROPRIATELY DUE TO EXPRESSIVE APHASIA. ATRIAL FIB RATE CONTROLLED THROUGHOUT SHIFT. UP WITH ASSISTANCE INCIDENT FREE. CONTINUE PLAN OF CARE.
[2019-03-29 04:48] VITALS: BP 147/79
[2019-03-29 05:50] LABS: ALBUMIN 2.4 g/dL (3.4-5.0); CALCIUM 7.9 mg/dL (8.5-10.1); CREATININE 0.7 mg/dL (0.7-1.3); POTASSIUM 4.1 mmol/L (3.5-5.1); TOTAL BILIRUBIN 0.9 mg/dL (<0.1-1.0); TOTAL PROTEIN 5.8 g/dL (6.4-8.2)
[2019-03-29 07:04] VITALS: BP 143/68
[2019-03-29 11:25] VITALS: BP 127/64
[2019-03-29 15:35] VITALS: BP 145/69
[2019-03-29 20:30] VITALS: BP 122/53
[2019-03-30] VITALS (50 sets, daily range): BP systolic 74–136; BP diastolic 24–95
[2019-03-30 05:13] LABS: ANION GAP 8 mmol/L (7-16); BUN 30 mg/dL (7-18); CHLORIDE 103 mmol/L (98-107); CO2 25 mmol/L (21-32); CREATININE 0.9 mg/dL (0.7-1.3); GLUCOSE 158 mg/dL (74-106); POTASSIUM 4.3 mmol/L (3.5-5.1); SODIUM 136 mmol/L (136-145)
[2019-03-30 05:23] LABS: MAGNESIUM 1.4 mg/dL (1.8-2.4); SGOT 21 U/L (15-37); SGPT 19 U/L (30-65); TOTAL BILIRUBIN 0.7 mg/dL (<0.1-1.0); TOTAL PROTEIN 5.7 g/dL (6.4-8.2); TROPONIN-I <0.06 ng/mL (<0.06)
[2019-03-30 07:46] LABS: HEMATOCRIT 31.6 % (42.0-52.0); HEMOGLOBIN 10.3 gm/dL (14.0-18.0); MCH 30.6 pg (26.0-34.0); MCHC 32.5 g/dL (28.0-37.0); MCV 94.1 fL (80.0-100.0); RBC 3.36 mil/uL (4.50-6.00); RDW 14.2 % (10.5-14.5)
--- NOTE | 2019-03-30 08:40 | NUR ---
Pt brought to ICU via bed by floor nurse. Report received once pt attached to bedside aeronautical inspector. Pt has remainder of 500 ml NS bolus finishing via IV right forearm.
--- NOTE | 2019-03-30 08:51 | NUR ---
Pt TRANSFERRED TO ICU THIS MORNING. WILL NEED UPDATED PT ORDERS IN ORDER TO RESUME PT INTERVENTIONS D/T TRANSFER TO HIGHER LEVEL OF CARE.
--- NOTE | 2019-03-30 08:58 | NUR ---
Took over pt care 0700. Pt alert and oriented x2, aphasic, follow commands. Pt had a tarry liquid stool, paged DR. DE LA O and sent in a sample per order and CBC order put in per order. AM BP 91/36, 81/55, pt alert and oriented through out. Dr. de la o paged, order for 500 bolus, CBC and BNP, G.I consult, ICU transfer per dr. de la o telephone orders put in by ailyn bauer. 0830 pt transfered to ICU, report given to ICU nurse by juancarlos. pt belonging packed and sent to ICU. Family updated.
--- NOTE | 2019-03-30 09:08 | NUR ---
NON EVENTFUL NIGHT FOR PATIENT UNTIL APPROXIMATELY 0440 WHEN NURSE WAS ALERTED TO PATIENTS BED ALARM GOING OFF. PATIENT WAS AT THE FOOT OF THE BED ATTEMPTING TO EXIT AND SEEMED CONFUSED. PATIENT APPEARED ASHEN WHITE AND STARTED TO HAVE WHAT NURSE ASSESSED TO BE A SYNCOPAL EPISODE. PATIENT PULLED UP IN THE BED AND IT APPEARED HE WAS IN RESPIRATORY ARREST WHICH TRIGGERED THIS NURSE CALLING CODE BLUE. IT WAS QUICKLY DETERMINED THAT HE WAS BREATHING, AND IN RAPID ATRIAL FIBRILLATION WITH A BLOOD PRESSURE. CODE QUICKLY CALLED OFF. PATIENT RETURNED TO BASELINE AROUND A MINUTE AFTER EVENT WITH VITAL SIGNS STABLE. LABS WERE ORDERED WITH OXYGEN INITIATED. AROUND SHIFT CHANGE WHILE NURSE WAS INFORMING PROVIDER OF THE EARLIER EVENT, NURSE WAS TOLD BY ONCOMING NURSE THAT PATIENT JUST HAD A BLOODY STOOL. SUBSEQUENTLY, DAY NURSE CONTACTED PROVIDER AND INFORMED HIM OF INCREASINGLY LOW BLOOD PRESSURES. ORDERS RECEIVED FOR LABS, CONSULT, AND TRANSFER TO ICU. NURSE HELPED TRANSFER PATIENT AND PROVIDED BEDSIDE REPORT. AND DAUGHTER NOTIFIED OF PATIENTS STATUS.
[2019-03-30 09:12] LABS: HEMATOCRIT 26.3 % (42.0-52.0); HEMOGLOBIN 8.7 gm/dL (14.0-18.0); MCHC 33.3 g/dL (28.0-37.0); MCV 93.2 fL (80.0-100.0); RBC 2.82 mil/uL (4.50-6.00); WBC 11.4 thou/uL (4.0-11.0)
--- NOTE | 2019-03-30 12:07 | NUR ---
chart review, cm visited with pt for short bit before being taken for test/procedure. cm visited with daughters and spouse aimee. " live in house 1 step to enter 12 to basement with hand rails. they don't go to basement. have shower chair, has walker that he doesn't use. drives, independent, manage own medication. no skilled, he would go to acute rehab here or at [facility]. or hh would be fine is visit little more so one not right after the other, that makes him to tired."/ and daughters. will cont following as needed for dc needs.
--- NOTE | 2019-03-30 12:12 | NUR ---
VASCULAR ACCESS CONSULTED FOR MIDLINE, NEEDED FOR BLEEDING STUDY IN NUCLEAR MED. DISCUSSED BENEFITS AND RISK WITH PT AND FAIMLY, VERBAL CONSENT OBTAINED. LEXIE BASILIC WAS WIDELY PATENT WITH USG, 4FR POWER MIDLINE TRIMMED TO 12CM WITH 2CM EXTERNAL,BRISK BR NOTED. ML RELEASED FOR IMMEDIATE USE TO JESSE ZEPEDA PER PROTOCOL.
--- NOTE | 2019-03-30 13:04 | NUR ---
PATIENT TRANSFERRED TO ICU THIS AM. OT WILL REQUIRE NEW ORDERS TO RESUME THERAPY DUE TO TRANSITION TO HIGHER LEVEL OF CARE.
--- NOTE | 2019-03-30 14:40 | 2DMMODE ---
[facility] [address] [address] 2 D/M-MODE ECHOCARDIOGRAM Name: DILEEP DUBON Room #: 244-P ADM IN M.R.#: [id number] Admission: 03/26/19 Attend Phys: Twin Swanson MD Discharge: Date of : 35 Report #: [id number] REPORT FOR: cc: Twin Swanson MD, Stanley P. MD ChasidyMayank galloway MD [facility] ~ APPROVED REPORT Study performed: 03/30/2019 13:11:48 EXAM: Comprehensive 2D, Doppler, and color-flow Echocardiogram Patient Location: ICU Room #: 244 Status: routine BSA: 1.62 HR: 102 bpm BP: 100/37 mmHg Rhythm: Atrial Fibrillation Other Information Study Quality: Adequate Indications CVA/TIA Diabetes Atrial Fibrillation Hypertension/HDD Echo Enhancing Agent Indication: Rule out Shunt Agent(s) / Amount(s) Used: Agitated Saline 7 cc 2D Dimensions IVSd: 9.30 (7-11mm) LVOT Diam: 20.01 (18-24mm) LVDd: 40.10 mm PWd: 8.22 (7-11mm) Ascending Ao: 34.42 (22-36mm) LVDs: 26.86 (25-40mm) Aortic Root: 33.45 mm IVC: 24.00 mm Volumes Left Atrial Volume (Systole) Single Plane 4CH: 54.47 mL Single Plane 2CH: 42.81 mL LA ESV Index: 33.00 mL/m2 [facility] [address] [place] [address] 2 D/M-MODE ECHOCARDIOGRAM Name: CASEDILEEP Room #: 244-P [facility] IN ..#: [id number] Admission: 03/26/19 Attend Phys: Twin Swanson, Discharge: Date of : 35 Report #: [id number] Aortic Valve AoV Peak Jaems.: 1.23 m/s AO Peak Gr.: 6.01 mmHg LVOT Max P.38 mmHg LVOT Max V: 1.05 m/s ELIZABETH Vmax: 2.68 cm2 Pulmonary Valve PV Peak James.: 1.07 m/s PV Peak Gr.: 4.57 mmHg Tricuspid Valve TR Peak James.: 2.60 m/s TR Peak Gr.: 27.09 mmHg PA Pressure: 37.00 mmHg Left Ventricle The left ventricle is normal size. There is normal LV segmental wall motion. There is normal left ventricular wall thickness. The left ventricular systolic function is normal. The left ventricular ejection fraction is within the normal range. LVEF is 55-60%. This study is not technically sufficient to allow evaluation of the LV diastolic function due to atrial fibrillation. Right Ventricle The right ventricle is normal size. The right ventricular systolic function is normal. Atria Left atrium is at the upper limits of normal. Interatrial septum is intact without evidence of ASD or PFO. The right atrium size is normal. Aortic Valve The aortic valve is normal in structure. Trace aortic regurgitation. There is no aortic valvular stenosis. Mitral Valve The mitral valve is normal in structure. There is no mitral valve regurgitation noted. No evidence of mitral valve stenosis. Tricuspid Valve The tricuspid valve is normal in structure. There is trace to mild tricuspid regurgitation. Estimated PAP 37 mmHg. There is mild pulmonary hypertension. Pulmonic Valve The pulmonary valve is normal in structure. There is no pulmonic [facility] [address] [place] [address] 2 D/M-MODE ECHOCARDIOGRAM Name: CASE,DILEEP Lynch Room #: 244-P [facility] IN [facility]#: [id number] Admission: 03/26/19 Attend Phys: Twin Swanson, Discharge: Date of : 35 Report #: [id number] valvular regurgitation. Great Vessels The aortic root is normal in size. IVC is dilated and collapses >50% with inspiration. Pericardium Mild circumferential pericardial effusion. <Conclusion> The left ventricle is normal size. LVEF is 55-60%. This study is not technically sufficient to allow evaluation of the LV diastolic function due to atrial fibrillation. The right ventricle is normal size. Left atrium is at the upper limits of normal. The right atrium size is normal. Trace aortic regurgitation. Interatrial septum is intact without evidence of ASD or PFO. There is no mitral valve regurgitation noted. There is trace to mild tricuspid regurgitation. Estimated PAP 37 mmHg. There is mild pulmonary hypertension. The aortic root is normal in size. Mild circumferential pericardial effusion. <ELECTRONICALLY SIGNED> By: Mayank Umaña MD, FACC 03/30/19 1439 [id number] Mayank Umaña MD, FACC /INF
[2019-03-30 16:18] LABS: HEMATOCRIT 27.7 % (42.0-52.0); HEMOGLOBIN 9.1 gm/dL (14.0-18.0)
--- NOTE | 2019-03-30 19:05 | NUR ---
Returned to ICU from Nuc Med post bleeding scan. Pt to return in morning for completion of test. Nuc Med tech is sanitation manager if active bleeding occurs overnight and MD wants additional scanning done. Pt incontinent of urine. Pad/sheet saturated. Saline lock right FA dc'd. Pt denies pain. Occasional periods of restlessness. Report given to oncoming RN.
--- NOTE | 2019-03-30 22:53 | NUR ---
PT JUST HAD LARGE MAROON COLORED STOOL. BP STABLE. NOTIFIED DR KELLEY. ORDERS RECEIVED.
[2019-03-31] VITALS (30 sets, daily range): BP systolic 94–150; BP diastolic 29–103
[2019-03-31 00:26] LABS: HEMATOCRIT 24.8 % (42.0-52.0)
--- NOTE | 2019-03-31 01:42 | NUR ---
DR DE LA O CALLED UNIT TO CHECK ON PT. UPDATED HIM ON RECENT HGB LEVEL. PT HAS HAD 2 LOOSE MAROON-COLORED STOOLS SO FAR THIS SHIFT. BP STABLE. ORDER RECEIVED TO GIVE 1 UNIT OF RBCS.
--- NOTE | 2019-03-31 05:43 | NUR ---
PT IS ORIENTED TO SELF ONLY; HE HAS BEEN RESTLESS MOST OF THE NIGHT. FIGETS OFTEN IN BED. FALL PRECAUTIONS IN PLACE. AFIB ON TELE. PRN IV LOPRESSOR GIVEN ONCE FOR SUSTAINED TACHYCARIA. HR IMPROVED. BP STABLE. PT HAS HAD MULTIPLE LOOSE MAROON STOOLS SINCE HE WAS GIVEN MAG CITRATE. 1 UNIT RBCS WAS GIVEN PER DR ORDER; PT TOLERATED WELL. VSS. PT IS SLEEPING AT THIS TIME. RESPIRATIONS EVEN AND UNLABORED. TITRATED OFF O2. NOT PROGRESSING WELL TOWARD POC GOALS. WILL CONTINUE TO MONITOR FURTHER.
[2019-03-31 07:17] LABS: HEMATOCRIT 30.2 % (42.0-52.0); HEMOGLOBIN 9.6 gm/dL (14.0-18.0)
[2019-03-31 09:00] LABS: CALCIUM 7.7 mg/dL (8.5-10.1); CREATININE 0.9 mg/dL (0.7-1.3); POTASSIUM 4.2 mmol/L (3.5-5.1)
[2019-03-31 16:34] LABS: HEMATOCRIT 29.3 % (42.0-52.0); HEMOGLOBIN 9.4 gm/dL (14.0-18.0)
--- NOTE | 2019-03-31 18:56 | NUR ---
PT NPO THIS MORNING FOR EGD. PT STABLE POST PROCEDURE. SEE PROCEDURE NOTE FOR INTERVENTIONS. RECHECKING HEMOGLOBIN. VSS. TOLERATING FULL LIQUID DIET. PROGRESSING TOWARDS GOALS. NO ISSUES WITH RHYTHM OR RATE THROUGH OUT THE DAY.
[2019-04-01] VITALS (17 sets, daily range): BP systolic 99–154; BP diastolic 44–95
--- NOTE | 2019-04-01 08:22 | NUR ---
PT RESTED COMFORTABLY THROUGHOUT THE NIGHT. NO COMPLAINT OF PAIN OR DISCOMFORT. NO BLOODY STOOL DURING THIS SHIFT. TOLERATING LIQUID DIET. PROGRESSING TOWARD GOALS.
[2019-04-01 08:23] LABS: HEMATOCRIT 25.7 % (42.0-52.0); HEMOGLOBIN 8.4 gm/dL (14.0-18.0)
--- NOTE | 2019-04-01 16:02 | NUR ---
Assumed care approx. 0700 this AM. Pt remains to follow commands and is making some words out, but still struggling to speak. Orders recieved to transfer pt out of ICU by Dr. Swanson if pt okay with GI-Dr. Morales approved. No signs of bleeding noted; although pt has had a couple smears of dark brown liquid on chucks which was shown to ABHISHEK Hollingsworth before disposal. Pt has been up between the bed and chair x1 assist with walker and a gait belt. No new changes noted this shift. Family updated at bedside. Pt waiting on a tele bed. Will continue to monitor. Pt progressing toward plan of care goals.
--- NOTE | 2019-04-01 18:31 | HC ---
[facility] [place] [address] CONSULTATION Name: DILEEP DUBON Room #: 244-P [facility] IN ..#: [id number] Admission: 03/26/19 Attend Phys: Twin Swanson MD Discharge: Date of : 35 Report #: [id number] THIS REPORT FOR: cc: Twin Swanson MD, Stanley P. MD Khosla, Parveen K. MD ~ THIS REPORT FOR: //name// CC: Twin Swanson DATE OF SERVICE: 03/26/2019 HISTORY OF PRESENT ILLNESS: This is an 83-year-old male patient who was seen by me in the Emergency Room. I had multiple discussions with the Emergency Room physician as well as the patient's and case coordinator. This patient's symptoms started probably yesterday, but when he woke up this morning, he was aphasic. When I saw this patient, he was completely aphasic. He does have a history of atrial fibrillation. He is on Coumadin. His INR is subtherapeutic. It is not clear from the history when did he check his INR prior to this. REVIEW OF SYSTEMS: Indicate he has a history of hypertension. I cannot get any history from him because he is completely aphasic. He has a history of high cholesterol. As I understand, he does not have a history of stroke in the past. A 14-point review of system was otherwise noncontributory. PAST MEDICAL HISTORY: Positive for atrial fibrillation. FAMILY HISTORY: Unremarkable. SOCIAL HISTORY: He lives with his and I talked to her in great detail. PHYSICAL EXAMINATION: Indicate the patient is alert, but he is completely aphasic. He does not follow simple commands. He has a right facial weakness. Neuromuscular examination could not be done because the patient is not able to cooperate. His blood pressure was 126/64, respiration was 18, pulse is 71, and temperature is 98.4. LABORATORY DATA: His white count is 9.7. His GFR is 48. He had a CT scan of the head, which already showed a stroke and CT angiography was also done by Emergency Room physician, which does not show any significant stenosis. His creatinine was high and his blood pressure was low and he had had the CT angiogram, so I recommended a bolus of fluid to this patient and Emergency Room physician indicated that has already been done. Plan was to contact [facility] or , [facility] was contacted to see if they will do any intervention. They looked at the patient's films and told them that no intervention can be done. Therefore, the patient is being admitted there. He does have vertebral artery [address] [address] CONSULTATION Name: CASEDILEEP Room #: 244-P [facility] IN ..#: [id number] Admission: 03/26/19 Attend Phys: Twin Swanson MD Discharge: Date of : 35 Report #: [id number] stenosis, but not much can be done about it. 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 CVA is already showing up on the CT scan indicating that the tissue is destroyed and probably the symptoms started yesterday. This is most likely because of cardioembolization. No intervention can be done according to the interventional radiologist. Main management is going to get an MRI done. If MRI shows a stroke, which is very likely then the question of anticoagulation need to be decided. This patient's PT and INR is normal. In these circumstances if the patient has a small stroke, then anticoagulation can be started within couple of days if it is a medium size stroke about 3 days; otherwise, we may have to wait for a week - assuming that MRI does not show any hemorrhagic conversion. I will also do an echocardiogram. If echocardiogram showed an active thrombus in the heart, then anticoagulation may have to be done urgently. More than 50 minutes of time was spent taking care of this patient today and majority of that time was spent counseling and coordinating. Dr. Rahman will follow up this patient with you from tomorrow. <ELECTRONICALLY SIGNED> By: Cyrus Limon MD 04/01/19 1831 [id number] Cyrus Limon MD /nt
--- NOTE | 2019-04-01 21:06 | NUR ---
REPORT IS GIVEN TO KATELYN BERRY. FAMILY IS AWARE OF PT WILL BE TX TO ROOM 353.
[2019-04-02] VITALS (7 sets, daily range): BP systolic 113–151; BP diastolic 49–66
--- NOTE | 2019-04-02 06:27 | NUR ---
Transferred from ICU at . Pt. is very impulsive and has expressive aphasia. A fib with controlled rate when pt. is resting and calm then HR up to 130's when restless and moving. Scheduled cardizem given. Tolerating room air well with no respiratory distress. No bleeding noted. Bed alarm for safety. Will continue to monitor.
[2019-04-02 08:20] LABS: HEMATOCRIT 23.6 % (42.0-52.0); HEMOGLOBIN 7.7 gm/dL (14.0-18.0); MCH 29.6 pg (26.0-34.0); MCHC 32.6 g/dL (28.0-37.0); MCV 90.6 fL (80.0-100.0); RBC 2.61 mil/uL (4.50-6.00); RDW 16.4 % (10.5-14.5); WBC 12.8 thou/uL (4.0-11.0)
[2019-04-02 08:22] LABS: CALCIUM 7.9 mg/dL (8.5-10.1); CREATININE 0.7 mg/dL (0.7-1.3); POTASSIUM 3.9 mmol/L (3.5-5.1)
--- NOTE | 2019-04-02 11:22 | EKG ---
[facility] [place] [address] [place] [address] ELECTROCARDIOGRAM REPORT Name: CASEDILEEP Room #: 353-P ADM IN M.R.#: [id number] Admission: 03/26/19 Attend Phys: Twin Swanson MD Discharge: Date of : 35 Report #: [id number] THIS REPORT FOR: cc: Twin Swanson MD, Stanley P. MD Couchonnal, Luis F. MD ~ THIS REPORT FOR: //name// [facility] ED Test Date: 2019-03-26 Test Time: 11:01:32 Pat Name: DILEEP DUBON Department: Room: Gender: Therapy Site Coordinator: SKINNY : 1935 Requested By: Ed Velez Order Number: [id number] MD: Duy Burciaga Measurements Intervals [place] Rate: 137 P: RI: QRS: 56 QRSD: 152 T: -45 QT: 299 QTc: 452 Interpretive Statements Atrial fibrillation Right bundle branch block ST depr, consider ischemia, anterolateral lds Compared to ECG 07/06/2018 07:51:11 Possible ischemia now present Electronically Signed On 03-26-2019 11:43:17 DIRECTOR OF MARKETING AND PROMOTIONS by Duy Burciaga [email or web address] <ELECTRONICALLY SIGNED> By: Duy Burciaga MD 03/26/19 1143 1101 1101 Duy Burciaga MD /EPI
[2019-04-02 12:51] LABS: HEMATOCRIT 25.4 % (42.0-52.0); HEMOGLOBIN 8.2 gm/dL (14.0-18.0)
--- NOTE | 2019-04-02 13:08 | PATH ---
[facility] [place] [address] PATHOLOGY RPT PROCEDURE Name: CASEDILEEP Room #: 353-P ADM IN M.R.#: [id number] Admission: 03/26/19 Date of : 35 Discharge: Report #: [id number] Path Case #: [id number] [facility] Accession Number: [id number] . 01 Material submitted: . stomach - BX OF ANTRUM . 01 Clinical history: . Pre-op diagnosis: Melena, anemia Post-op diagnosis: Ulcers R/O H. pylori . 02 Diagnosis: Gastric biopsy "biopsy of antrum R/O H. pylori": - Mild chronic reactive gastropathy. - There is no evidence of atypia or malignancy. - The immunoperoxidase stain for Helicobacter pylori is negative. . (SHA:guerrero; 04/02/2019) S 04/02/2019 0907 Local . 02 Electronically signed: . Charles Blanco MD, Pathologist NPI- [id number] . 01 Gross description: . The specimen is received in formalin, labeled "Dileep Case, biopsy of antrum to R/O H. pylori". Received are two segments of pale bar[place]ona soft tissue ranging in size from 0.3 to 0.6 cm in maximum dimensions. The specimen is submitted entirely in cassette A1. (CAA; 04/01/2019) QAC/QA 04/01/2019 1433 Local . 02 Pathologist provided ICD-10: K31.9 . 02 CPT . 924609, U48114 Specimen Comment: A courtesy copy of this report has been sent to [phone] Specimen Comment: Report sent to DR DE LA O Performed at: [address] [id number] MD Sandip Nieto MD Phone: [phone] Performed at: [address] [id number] [address] [address] PATHOLOGY RPT PROCEDURE Name: CASEDILEEP Room #: 353-P [facility] IN M.R.#: [id number] Admission: 03/26/19 Date of : 35 Discharge: Report #: [id number] Path Case #: [id number] MD Kerri Grande MD Phone: [phone]
[2019-04-02 13:24] LABS: URINE BLOOD 2+ (Negative); URINE CLARITY CLEAR; URINE COLOR YELLOW; URINE GLUCOSE-RANDOM* TRACE (Negative); URINE KETONES NEGATIVE (Negative); URINE LEUKOCYTES TRACE (Negative); URINE NITRITE NEGATIVE (Negative); URINE PROTEIN (DIPSTICK) TRACE (Negative); URINE SPECIFIC GRAVITY 1.025 (1.005-1.035)
[2019-04-02 13:31] LABS: ICTOTEST (BILI CONFIRMATORY) Negative (Negative); URINE BILIRUBIN NEGATIVE (Negative)
[2019-04-02 13:40] LABS: BACTERIA 1-9 Few /HPF (None Seen); CASTS None Seen /LPF (None Seen); CRYSTALS None Seen /LPF (None Seen); SQUAMOUS None Seen /LPF (0-3); URINE WBC 0-5 Rare /HPF (0-5)
--- NOTE | 2019-04-02 15:59 | NUR ---
SW reviewed chart and spoke with nursing and attending physician. Pt was transferred to 3 from ICU and is progressing towards goals for discharge. Pt's hemoglobin dropped over night. GI following. ANDRÉS spoke with pt's dtr, Isabelle, via phone to provide update and discuss discharge plans. Pt's dtr states she works at [employer] and would like [facility] [place] at that location. However, Isabelle states that pt and family would be agreeable with [facility] as well. ANDRÉS explained need for insurance authorization. [facility] to check to see if they are in-network wiht pt's [employer] plan. AND[facility] and notified liaison of referral. Awaiting input from both rehab facilities at this time. ANDRÉS is following to assist as needed with discharge planning.
--- NOTE | 2019-04-02 16:46 | NUR ---
FLAT HAMMERER CONTACTED BY [employer] STATING PATIENT WAS INTERESTED IN COMING TO ACUTE REHAB AT [facility]. PATIENT IS APPROPRIATE FOR ACUTE REHAB. INSURANCE CONTACTED TO CONFIRM THAT [facility] WAS IN NETWORK FOR PATIENT. FOUND [facility] IS OON FOR PATIENT'S INSURANCE AND THEREFORE UNABLE TO COME TO [facility] FOR REHAB NEEDS. [employer] INFORMED. THANK YOU FOR THIS REFERRAL.
--- NOTE | 2019-04-02 20:01 | NUR ---
Assumed care approx. 0700 this AM. Pt noted to be agitated & restless this morning while flailing arms at staff members which hasn't been the patient's baseline. Physical therapy noted the patient may have had some slight neglect in his left visual field. Pt was noted to struggle more than previously with following commands. Pt also was experiencing some slight tremors/shaking in the hands and bilat upper extremities. These changes were reported to Dr. Swanson and Dr. Saeed. A STAT MRI was ordered-pt reportedly was restless and moved much during the scan. Dr. Carlson discussed results with pt and family at bedside. Pt reports no pain. Sellers was dc'd this afternoon per Dr. Swanson's orders. Pt has been incont of urine since removal of sellers cath. No other new changes noted since this morning. Fall precautions in place. Family at bedside to visit. Pt slightly progressing toward plan of care goals.
[2019-04-03 03:41] LABS: HEMATOCRIT 23.6 % (42.0-52.0); HEMOGLOBIN 7.9 gm/dL (14.0-18.0)
[2019-04-03 04:16] VITALS: BP 133/64
[2019-04-03 07:49] VITALS: BP 157/73
--- NOTE | 2019-04-03 08:21 | NUR ---
ASSUMED CARE AT 1900. PT ANSWERS YES/NO QUESTIONS APPROPRIATELY, ALERT x3; IMPROVED SPEECH OVERNIGHT, SAID A FEW COMPLETE SENTENCES. PT URINATED SEVERAL TIMES FIRST HALF OF SHIFT, INCONT IN A BRIEF. ABOUT 0300, PT BECAME RESTLESS AND IMPULSIVE, UNABLE TO URINATE EXCEPT SMALL SPURTS. BLADDER SCAN SHOWED >400; STRAIGHT CATH PER POST-JIMENEZ POLICY RETURNED 450 ML URINE. PT CALMED AND ABLE TO REST; ABOUT 0545, PT DID THE SAME THING, BUT ONLY HAD 250 ON BLADDER [address] NOT[address]. DE LA O THIS AM, OBTAINED ORDER TO START ON FLOMAX. HR CONTROLLED IN 70-80'S AFIB. NO OTHER CONCERNS, SHIFT REPORT GIVEN AT 0700.
[2019-04-03 11:19] VITALS: BP 107/50
--- NOTE | 2019-04-03 13:46 | NUR ---
ANDRÉS reviewed chart. ANDRÉS notified that and [facility] are both out of network with pt's insurance. Pt has an HMO [employer] policy. ANDRÉS spoke with pt's dtr, Isabelle, via phone to provide update and discuss alternate options for inpt acute rehab. Pt's dtr requests to check with [facility] in acute rehab and [facility]. ANDRÉS faxed face sheet to [facility] and notified Alicia and faxed face sheet to [facility] and spoke with Albin. Both will check pt's insurance to see if they are in network. ANDRÉS updated attending physician. No weekend discharge planned. ANDRÉS is following to assist as needed with discharge planning.
[2019-04-03 15:18] VITALS: BP 91/48
--- NOTE | 2019-04-03 15:34 | NUR ---
ASSUMED CARE OF PT AT 0700. PT ALERT AND ORIENTED IN NO ACUTE DISTRESS. DIFFICULTY VERBALIZING BUT SHOWING IMPROVEMENT. URINATING 50-100cc PER VOID. BLADDER SCAN SHOWING ~200ML. VOICING NO URGE TO VOID. MANY FAMILY AT BEDSIDE. WILL CONT TO MONITOR.
[2019-04-03 19:31] VITALS: BP 110/56
[2019-04-04 00:44] VITALS: BP 118/49
[2019-04-04 05:13] VITALS: BP 147/69
[2019-04-04 06:57] LABS: HEMATOCRIT 16.8 % (42.0-52.0); HEMOGLOBIN 5.6 gm/dL (14.0-18.0)
[2019-04-04 07:27] VITALS: BP 111/50
[2019-04-04 08:37] LABS: HEMATOCRIT 22.8 % (42.0-52.0); HEMOGLOBIN 7.5 gm/dL (14.0-18.0); MCH 30.1 pg (26.0-34.0); MCHC 32.8 g/dL (28.0-37.0); MCV 91.8 fL (80.0-100.0); RBC 2.49 mil/uL (4.50-6.00); RDW 16.8 % (10.5-14.5); WBC 13.2 thou/uL (4.0-11.0)
--- NOTE | 2019-04-04 08:44 | NUR ---
ASSUMED CARE AT 1900. CONTINUED TO SCORE A 2 ON NIH; ANSWERED QUESTIONS APPROPRIATELY, APHASIA SLIGHTLY IMPROVING. MIDLINE LEAKING HEAVILY AND RIGHT AC IV INFILTRATED; REMOVED BOTH AND RESTARTED A NEW 22g IN THE RIGHT WRIST. AFIB IN 70-80'S OVERNIGHT. CONTINUED TO BE INCONT OF URINE THROUGHOUT THE NIGHT; LESS RESTLESSNESS/ANXIETY WITH URINATION COMPARED TO PREVIOUS SHIFT. NO OTHER CONCERNS, SHIFT REPORT GIVEN AT 0700.
[2019-04-04 11:29] VITALS: BP 116/16
--- NOTE | 2019-04-04 16:08 | NUR ---
Assumed care approx. 0700 this AM. Pt oriented to person, situation and knows he is in the hospital. Pt starting to express his needs more, and able to find more words than previously. Afib rate remains controlled. Fluids dc'd per Dr. Swanson. First H/H drawn this AM was incorrect as it was diluted. A STAT CBC and type and screen was completed. No blood transfusion was ordered after redraw as Hgb is still greater than 7. No neurological changes noted. Will continue to monitor. Pt progressing toward plan of care goals.
[2019-04-04 19:25] VITALS: BP 137/58
[2019-04-05 02:04] VITALS: BP 137/58
[2019-04-05 03:50] VITALS: BP 107/48
[2019-04-05 07:33] VITALS: BP 118/71
[2019-04-05 11:41] VITALS: BP 126/57
[2019-04-05 15:21] VITALS: BP 116/48
--- NOTE | 2019-04-05 18:51 | NUR ---
ASSUMED CARE OF PT AT 0700. BROWN STOOL TODAY. XERALTO RESTARTED. NO OTHER CHANGES TO REPORT.
[2019-04-05 20:12] VITALS: BP 131/66
--- NOTE | 2019-04-06 04:56 | NUR ---
PT HAD 1 BOUT OF INCONTINENCE THIS SHIFT. PT WAS ABLE TO USE URINAL AND WITH X1 TO BSC. PT TAKES PILLS WHOLE WITH SIPS, SUGGESTION IS TO SPLIT THE AUGMENTIN PILL IN 1/2 OTHERWISE IT WILL GET STUCK IN PT THROAT PREVIOUS NIGHT. HOURLY ROUNDING.
[2019-04-06 05:40] LABS: HEMATOCRIT 23.5 % (42.0-52.0); HEMOGLOBIN 7.8 gm/dL (14.0-18.0); MCHC 33.2 g/dL (28.0-37.0); MCV 93.3 fL (80.0-100.0); RBC 2.52 mil/uL (4.50-6.00); RDW 17.3 % (10.5-14.5); WBC 17.1 thou/uL (4.0-11.0)
[2019-04-06 06:15] LABS: CALCIUM 7.8 mg/dL (8.5-10.1); CREATININE 0.8 mg/dL (0.7-1.3); POTASSIUM 3.8 mmol/L (3.5-5.1)
[2019-04-06 06:48] VITALS: BP 118/43
[2019-04-06 08:53] VITALS: BP 126/42
[2019-04-06 11:54] VITALS: BP 123/57
[2019-04-06 15:46] VITALS: BP 123/63
--- NOTE | 2019-04-06 16:25 | NUR ---
ANDRÉS reviewed chart and spoke with nursing and attending physician. ANDRÉS faxed clinical/therapy notes to to Mansi at [facility] for review. [facility] is in-network with pt's insurance. Pt is progressing towards goals for discharge. [facility] submitted for insurance authorization today. ANDRÉS spoke with pt's dtr, Isabelle, via phone to provide update. Pt's dtr states that neurology stated they would prefer for pt to stay at [facility] for continued monitoring. Neuro states that they would speak with insurance on pt's behalf. ANDRÉS is following to assist as needed with discharge planning.
--- NOTE | 2019-04-06 19:34 | NUR ---
0700 pt care taken over at 0700, pt alert and oriented X2. Denies apin, nausea and vomiting. Assessment completed, pt on room air. Bed alarm on, call light in reach. pt progressing towards care. Will continue to monitor.
[2019-04-06 19:54] VITALS: BP 148/61
--- NOTE | 2019-04-07 04:38 | NUR ---
ASSUMED PT CARE AT 1900. FAMILY AT BEDSIDE. NO SIGN OF DISTRESS NOTED IN PT. DENIES ANY PAIN, FALL PRECAUTION IN PLACE. ASSESSMENT COMPLETED AND DOCUMENTED. PT IS ALERT, CONFUSED AND FORGETFUL. SCHEDULED MEDS ADMINISTERED TO PT. PT TOLERATED PO INTAKE. DURING THE NIGHT, PT BECOMES DELIRIOUS AND CONFUSED FOR THE MOST PART, AWAKE FOR THE MOST PART OF THE NIGHT. MONITORED PT CLOSELY. NO FURTHER NEEDS AT THIS TIME.
[2019-04-07 04:43] VITALS: BP 123/59
[2019-04-07 05:29] LABS: HEMATOCRIT 22.9 % (42.0-52.0); HEMOGLOBIN 7.4 gm/dL (14.0-18.0)
[2019-04-07 07:47] VITALS: BP 121/57
[2019-04-07 11:13] VITALS: BP 126/51
--- NOTE | 2019-04-07 16:05 | NUR ---
ANDRÉS reviewed chart and spoke with nursing and attending physician. Psych consult ordered and MRI ordered. ANDRÉS received voice message from Loren at [facility] regarding pt's discharge plan. ANDRÉS returned call to provide updated clinical info to Loren. ANDRÉS received call from Mansi at [facility], who states they did receive insurance authorization. They can accept pt when medically stable. ANDRÉS notified attending physician and pt's dtr, Isabelle, via phone. Isabelle is aware and agreeable with plan. ANDRÉS is following to assist as needed with discharge planning.
[2019-04-07 16:11] VITALS: BP 116/56
[2019-04-07 19:35] VITALS: BP 118/55
[2019-04-08 04:04] VITALS: BP 128/57
[2019-04-08 06:51] LABS: HEMATOCRIT 22.2 % (42.0-52.0); HEMOGLOBIN 7.2 gm/dL (14.0-18.0)
[2019-04-08 07:25] VITALS: BP 130/64
[2019-04-08 11:12] VITALS: BP 104/52
[2019-04-08 11:58] LABS: % SATURATION 24 % (20-39); IRON 32 ug/dL (65-175); TIBC 135 ug/dL (250-450)
[2019-04-08] MEDS ORDERED: ADULT LOW DOSE81 MG PO (13:45)
[2019-04-08] MEDS ORDERED: CARDIZEM30 MG PO (13:45)
[2019-04-08] MEDS ORDERED: LOPRESSOR25 PO (13:45)
[2019-04-08] MEDS ORDERED: LIPITOR40 MG PO (13:45)
[2019-04-08] MEDS ORDERED: XARELTO20 MG PO (13:45)
[2019-04-08] MEDS ORDERED: PANTOPRAZOLE SO40 M1 PO (13:45)
[2019-04-08 15:20] VITALS: BP 122/60
--- NOTE | 2019-04-08 15:23 | NUR ---
DISCHAR[facility] OR[facility] COMPLET[facility] TRANSPORTATION ARRANGED PER KAY, [facility]. CHART COPY COMPLETED PER [facility]. DAUGHTER MARICRUZ NOTIFIED OF DISCHARGE PLAN AND TIME OF TRANSPORTATION. UNIT RN NOTIFIED. CONTACT NUMBER FOR REPORT PROVIDED. [phone]. UNIT SW AWARE.
--- NOTE | 2019-04-08 16:21 | NUR ---
DISCHARGE NOTE: SW reviewed chart and spoke with nursing and attending physician. Pt is medically stable for discharge to [facility] today. Discharge orders finalized. order planner faxed discharge orders/summary to [facility]. Transportation scheduled for 1900 per facility's arrangements. SW met with pt and multiple family members at the bedside to discuss discharge plan. Pt's family had questions regarding pt's insurance. SW explained that [facility] did obtain insurance authorization, as they are in-network. Pt's family states they are in the process of changing pt's insurance and are hopeful that the new insurance can be active on 04/18. Questions answered for family. All agreeable with discharge plan. Chart copy ordered. Nursing to call report. No additional SW needs identified at this time, but is available to assist should needs arise.
[2019-04-08 17:28] VITALS: BP 122/60
--- NOTE | 2019-04-08 17:46 | NUR ---
174 report called to Gertrude at [facility], patient to be dismissed at 191. Current condition and cares gone over.
--- NOTE | 2019-04-08 18:48 | NUR ---
transportion here to get patient for [place] at 1845.
--- NOTE | 2019-04-12 21:47 | H ---
[facility] [place] [address] HISTORY AND PHYSICAL Name: CASEDILEEP Room #: 353-P [facility] IN M.R.#: [id number] Admission: 03/26/19 Attend Phys: Twin Swanson MD Discharge: 04/08/19 Date of : 35 Report #: [id number] THIS REPORT FOR: //name// CC: Twin Swanson DATE OF SERVICE: 03/26/2019 CHIEF COMPLAINT: Aphasia, subacute stroke. HISTORY OF PRESENT ILLNESS: Information is obtained from the Emergency Room physician's record. He was able to interview the patient and the family. Information is also available from Dr. Limon's consultation. Family indicate that the patient had some difficulty with his speech last night, but then went to bed. When he awoke this morning, he was completely aphasic and brought to the hospital. In the Emergency Room, his aphasia was confirmed and evaluation showed a subacute left frontal stroke. Investigations were done to investigate the possibility of benefit from an acute intervention, but the arteriogram showed no thrombus or blockage. MRI scan of the head showed a left frontal lobe anterior left middle cerebral artery distribution acute stroke extending through the left frontal operculum and left insula. No hemorrhage was seen. He was seen in consultation by the Neurology Service, Dr. Limon. Dr. Limon left it for Dr. Rahman who is to see the patient tomorrow, to evaluate whether he has a small middle or large stroke, and when to establish anticoagulation based on the stroke size. Also, an echocardiogram will be ordered, to look for an intracardiac thrombus, which would mandate earlier anticoagulation. Note is made that the patient was subtherapeutic with his warfarin with an INR of 1.1 in the ER. PAST MEDICAL HISTORY: Positive for mild progressive cognitive dysfunction over the last several years and noncompliance. He insisted on using warfarin as an anticoagulant for stroke prophylaxis because of the high cost of the newer agents. He did not regularly come to the office to have his protimes checked, but when they were checked, they were reasonable with INRs varying from 1.8-2.4. He has had longstanding atrial fibrillation. He has had bladder cancer resected transurethrally on 2 different occasions. He has hypertension, and type 2 diabetes along with benign prostatic hypertrophy and occasional episodes of urine retention. His presenting albumin on his most recent admission in June 2018 was low enough at 2.7 that he qualified for severe malnutrition. HOME MEDICATIONS: Reported as alfuzosin 10 mg daily for bladder emptying, [address] [address] HISTORY AND PHYSICAL Name: CASEDILEEP Room #: 353-P [facility]#: [id number] Admission: 03/26/19 Attend Phys: Twin Swanson MD Discharge: 04/08/19 Date of : 35 Report #: [id number] diltiazem ER 180 mg once daily for atrial fibrillation and pressure; metoprolol succinate 50 mg 1-1/2 tablets in the morning for blood pressure and atrial fibrillation, heart rate control; Jardiance 25 mg once daily (it is known that he does not take this medication because of its expense), pravastatin 40 mg daily for hyperlipidemia, and warfarin 5 mg 1 tablet daily. ALLERGIES: None known. REVIEW OF SYSTEMS: Negative other than the HPI above. FAMILY HISTORY: Noncontributory. OBJECTIVE: GENERAL: Shows an 83-year-old male who is alert in the hospital room and appeared to recognize me. He is unable to speak more than occasional mumblings. He appears to answer yes and no questions appropriately with nods of his head. NEUROLOGIC: There is a right facial hemiparesis noted, formal neurological testing was not otherwise performed, but he does not seem to have weakness of any of his 4 extremities. LUNGS: Clear. CARDIOVASCULAR: His heart tones are normal and irregularly irregular. ABDOMEN: Soft and nontender, without organomegaly or masses. EXTREMITIES: The legs show no edema, and resting muscle tone appears to be normal throughout all 4 extremities. LABORATORY DATA: Albumin is low again at 2.7. His other laboratory is unremarkable. Imaging studies show an acute/subacute stroke of the anterior left middle cerebral artery distribution involving the left frontal operculum and left insula consistent with an acute/subacute infarct. No thrombi were seen within the arterial vessels. ASSESSMENT: 1. 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 2. Aphasia from the stroke. 3. Chronic atrial fibrillation. 4. Previous history of mild cognitive dysfunction. 5. Hypertension. 6. Hyperlipidemia. 7. Type 2 diabetes. 8. History of bladder cancer on 2 occasions. 9. Other medical problems as mentioned above. PLAN: The patient has been admitted. His heart rate was initially controlled with Cardizem infusion, which now has been stopped because his blood pressure [facility] [address] [place] [address] HISTORY AND PHYSICAL Name: CASE,DILEEP Lynch Room #: 353-P [facility] IN M.R.#: [id number] Admission: 03/26/19 Attend Phys: Twin Swanson MD Discharge: 04/08/19 Date of : 35 Report #: [id number] dropped significantly below the neurologist recommended cutoff of 140. Plans are to continue to control his heart rate with low intermittent doses of intravenous metoprolol, and switching his IV fluids from half normal saline to normal saline to help support blood pressure above 140. Rehabilitation Medicine consultation will be requested. A Rg catheter has been placed for an inability to empty his bladder. He currently is a full "no code." <ELECTRONICALLY SIGNED> By: Twin Swanson MD 04/12/19 2147 0042 0129 Twin Swanson MD /nt
--- NOTE | 2019-04-13 18:26 | D ---
[facility] [place] [address] DISCHARGE SUMMARY Name: DILEEP DUBON Room #: 353-P [facility] IN .R.#: [id number] Admission: 03/26/19 Attend Phys: Twin Swanson MD Discharge: 04/08/19 Date of : 35 Report #: [id number] THIS REPORT FOR: cc: Twin Swanson MD, Stanley P. MD Sharp, Stanley P. MD ~ THIS REPORT FOR: //name// CC: [facility] phone [phone] fax [phone] Twin Swanson DATE OF SERVICE: 04/08/2019 SUMMARY OF HISTORY AND PHYSICAL: The patient presented to the Emergency Room the morning after having symptoms of aphasia and was found to have a subacute stroke. He has had known cognitive difficulties and has been seen by home health and had family members who live in the same neighborhood with him and his , assist with medications, and when he was admitted here for a Gram-negative rafael bacteremia in 06/2018, he was switched from warfarin to one of the newer anticoagulant medications. He chose not to take that medication because of the cost and returned to warfarin. He was noncompliant with followup appointments to monitor his INR, which were irregular. His INR in the Emergency Room was subtherapeutic. With his longstanding atrial fibrillation, it was presumed that he had experienced an acute embolic stroke to the left middle cerebral artery territory. Admission was indicated for close monitoring and therapies and further evaluation. SUMMARY OF HOSPITAL COURSE: He was admitted to a telemetry unit and monitored. He was seen by the Neurology Department who diagnosed the stroke recommended resuming anticoagulation after the danger for it turning from a "dry stroke" to a hemorrhagic stroke had passed. His aphasia became less dense. He was able to participate with occupational therapy and physical therapy without focal motor deficits of any significance. On March 30, the day after he received his first dose of anticoagulation, Xarelto, he had a large melanotic and bloody stool. He was transferred to the intensive care unit. The following day, an EGD showed 2 duodenal ulcers, the largest of which had a visible vessel that was injected with epinephrine and cauterized. Mild gastritis was biopsied. His hemoglobin remained stable and he was transferred back to the floor. He then had 1 restless night and the following day was lethargic and seemed to [address] [address] DISCHARGE SUMMARY Name: DILEEP DUBON Room #: 353-P [facility] IN ..#: [id number] Admission: 03/26/19 Attend Phys: Twin Swanson MD Discharge: 04/08/19 Date of : 35 Report #: [id number] have a setback. He remained lethargic and not as active the day afterwards and Neurology was asked to reconsult. An MRI scan was ordered and refused by the family because he absolutely hated MRI scans because of his claustrophobia and required are very strong sedative in order to perform the scan. On 04/02/2019, prior to resuming anticoagulation and several days before his GI bleeding, he was noticed to have a setback in his neurological status. A repeat MRI scan showed a possible new area of stroke, within the broader area of the left middle cerebral artery supplied hemisphere. On his last hospital day, the neurologist thought that he had been excessively tired the previous 2 days from the sleepless night that preceded them. All of his gains had been restored. He was still aphasic, but much better able to understand complex instructions. He was able to say simple sentences and hold simple conversations. He was transferred to the [facility] for prolonged speech therapy and rehabilitation from his stroke. He expressed frustration and sadness not being able to go home and several times said that all he wanted to do was to go home. RADIOLOGY DATA: MRI scanning on admission showed an acute infarct involving the left frontal lobe anterior left middle cerebral artery distribution, extending through the left frontal operculum and left insula. No hemorrhage was seen. Scattered periventricular microvascular ischemia was seen also. MRI scan 04/02/2019 was compromised because of extensive patient motion artifact causing severe image degradation. There did seem to be somewhat more pronounced changes in images specifically reviewed in the body of the report. There were findings compatible with the late subacute ischemic infarct and there was a questionable new small focus of restricted diffusion more superiorly and posteriorly in the left frontal lobe cortex, felt to be possibly a new very small left MCA territory infarct. Chest x-ray showed cardiomegaly unchanged, normal vascularity and no infiltrates and was negative. Carotid Doppler showed multifocal mild predominantly calcified plaques without significant stenosis. CT scan of the head with a stroke protocol on admission showed no major branch occlusion or obvious arterial thrombus of the intracranial arterial system. Subacute ischemia of the left frontal lobe was present. Moderate atherosclerotic stenosis of the supraclinoid segment of the internal carotid arteries in both right and left side. 95% stenosis of the origin of the right vertebral and the left vertebral is diffusely small with multifocal occlusions throughout. Biopsy of the stomach showed mild chronic reactive gastropathy and was negative for Helicobacter pylori. Admitting creatinine was mildly elevated at 1.4 and returned to baseline at 0.[address] [address] DISCHARGE SUMMARY Name: DILEEP DUBON Room #: 353-P [facility] IN [facility]#: [id number] Admission: 03/26/19 Attend Phys: Twin Swanson MD Discharge: 04/08/19 Date of : 35 Report #: [id number] by discharge. BUN was 48 and returned to normal at discharge. Magnesium was low at 1.4 and 1.3. Alkaline phosphatase was mildly elevated at 244 with his SGPT levels being abnormally low and his SGOT levels being normal. Albumin was 2.7 on admission, fitting the criteria for severe malnutrition. On admission, his cholesterol was 129, triglycerides 61, HDL 36, LDL 81, VLDL 12. INR on admission was normal at 1.1 with a protime of 11.6 - it indicates that he had not been taking his warfarin for a significant period of time. HbA1c was 7.4 indicating poor control for diabetes. Urinalysis on admission was negative, Rg catheter was placed to monitor urine output and when removed several days later, he did have foul-smelling urine with leukocytes and blood being present. Urine culture was ordered, but not performed. On admission, his hemoglobin was 12.1. He did have a GI bleed from a bleeding duodenal ulcer with a visible artery in the bottom of the ulcer. Lowest hemoglobin was 7.5. He was transfused 2 units of packed cells in the setting of an acute GI bleed and subacute stroke. At the end of his hospital stay, his iron was low at 32. His hemoglobin was 7.2. His ferritin was high at 2614 - this was after receiving 1000 mg of Venofer infusion. DISCHARGE DIAGNOSES: 1. He presented with a subacute left middle cerebral artery territory stroke, presumed embolic from his atrial fibrillation and not being quite anticoagulated. 2. He suffered a small new stroke on 04/02/2019. 3. He was noncompliant with his warfarin, that for years had been effective at preventing stroke from his permanent atrial fibrillation. 4. He presented with an elevated BUN and creatinine from dehydration and his kidney function responded well. 5. Severe malnutrition was present on admission with an albumin of 2.7. 6. He did have an elevated alkaline phosphatase and the origin was not determined. 7. Type 2 diabetes in poor control with hemoglobin A1c of 7.4. 8. He did have bilateral carotid plaquing described as "mostly calcified" implying there were soft plaque and potentially embolic components present. 9. Moderate spinal stenosis was seen in C5-C6 on CT scanning with moderate degenerative disk disease through the rest of the cervical spine. 10. CT arteriogram of the neck: Severe stenosis of the origin of the right vertebral artery with post-stenotic dilatation is present. The rest of the right vertebral artery is normal in its course. The left vertebral artery is "diffusely small in caliber with multifocal severe stenosis and occlusion throughout the neck." 11. CTA head: Moderate stenosis of the supraclinoid segments of the internal artery carotids bilaterally. Moderate stenosis of the proximal left posterior cerebral artery. [address] [address] DISCHARGE SUMMARY Name: CASEDILEEP Room #: 353-P DIS IN ..#: [id number] Admission: 03/26/19 Attend Phys: Twin Swanson MD Discharge: 04/08/19 Date of : 35 Report #: [id number] 12. Transthoracic echocardiogram showed normal left ventricle geometry and function at 55-60% EF. Right ventricle is normal. Left atrium at the upper limits of normal. Right atrium normal. Trace aortic regurgitation. Interatrial septum is intact without evidence of ASD or PFO. No mitral regurgitation is seen. PAP is estimated at 37 mmHg. Mild pulmonary hypertension. Aortic root is normal in size. Mild circumferential pericardial effusion is present. 13. Hyperlipidemia - started on atorvastatin 40 mg daily. 14. Distant history of bladder cancer with transurethral resection on 2 different occasions. 15. Hypertension. 16. Severe malnutrition in 06/2018 when he was admitted to the hospital. 17. Previous history of mild cognitive dysfunction. PLAN: He is transferred to [facility] for intensive speech therapy. Note is made that he did not have a significant deficit in motor function of his extremities, and was able to participate without problems with PT and OT. MEDICATIONS: Xarelto 20 mg daily, atorvastatin 40 mg daily, metoprolol tartrate 75 mg twice daily, diltiazem 30 mg orally 4 times daily, 81 mg aspirin daily, pantoprazole 40 mg before breakfast and before the evening meal, alfuzosin 10 mg extended release once daily for bladder control. He is to have a CBC and a CMP on 04/09/2019. He is to return to see me after he has been out of the hospital for several weeks. <ELECTRONICALLY SIGNED> By: Twin Swanson MD 04/13/19 1826 [phone] Twin Swanson MD /nt
== END 2019-04-08 18:48 | DRG 64 ==
LOC: ER 10:40 → EROBS 14:40 → ICU 14:40 → 3W 14:40 → ICU 03-30 08:39 → 3W 04-01 22:17
PROVIDERS: Emergency Medicine; Internal Medicine; Internal Medicine Gastroenterology; Nurse Practitioner; ADMIT Internal Medicine
DX: I63.9 Cerebral infarction, unspecified (principal); K29.71 Gastritis, unspecified, with bleeding; K26.4 Chronic or unspecified duodenal ulcer with hemorrhage; E43 Unspecified severe protein-calorie malnutrition; I48.21 Permanent atrial fibrillation; I48.20 Chronic atrial fibrillation, unspecified; D62 Acute posthemorrhagic anemia; I10 Essential (primary) hypertension; E78.5 Hyperlipidemia, unspecified; E78.00 Pure hypercholesterolemia, unspecified; E11.9 Type 2 diabetes mellitus without complications; I95.9 Hypotension, unspecified; C67.9 Malignant neoplasm of bladder, unspecified; N40.0 Benign prostatic hyperplasia without lower urinary tract symptoms; R13.10 Dysphagia, unspecified; D72.829 Elevated white blood cell count, unspecified; Z79.899 Other long term (current) drug therapy; Z87.891 Personal history of nicotine dependence; Z79.82 Long term (current) use of aspirin; I69.320 Aphasia following cerebral infarction; Z79.01 Long term (current) use of anticoagulants; Z86.010 Personal history of colon polyps; Z91.14 Patient's other noncompliance with medication regimen
CPT/HCPCS: 10078; 10879; 27000; 62110; 62900; 70005; 85076

== ENCOUNTER 2019-04-13 18:54 | Inpatient (IN) | payer OTHER ==
[~2019-04-13] VITALS: Ht 167.6 cm; Wt 65.4 kg
--- NOTE | ~2019-04-13 | H ---
[facility] [place] [address] HISTORY AND PHYSICAL Name: DILEEP DUBON Room #: 216-P ADM IN M.R.#: [id number] Admission: 04/13/19 Attend Phys: Twin Swanson MD Discharge: Date of : 35 Report #: [id number] THIS REPORT FOR: //name// CC: Twin Swanson DATE OF SERVICE: 04/13/2019 CHIEF COMPLAINT: Recurrent GI bleeding. HISTORY OF PRESENT ILLNESS: Please see the complete dictated summary for the patient's admission here with a subacute embolic stroke on 03/26/2019, bleeding artery in the base of a duodenal ulcer on 03/30/2019 and transfer to [facility] on 04/09/2019 after the patient experienced a very minimal extension of his stroke on 04/02/2019. He was admitted to the [facility] on 04/08/2019. Records that accompanied him in transfer show that his hemoglobin was 7.5 on 04/09/2019, 7.2 on 04/10/2019, 7.0 on 04/11/2019 and 6.4 on 04/13/2019 when he was transferred. On 04/12/2019, stool was positive for occult blood. His daughter reported that his stools had turned black over the previous several days and that he had easy fatigability and restlessness. For this reason, he was brought to the [facility] Room where his hemoglobin was a little bit higher than 6.4 measuring 7.2. However, this morning after admission, his hemoglobin dropped to 6.6 without being diluted by IV fluids. Earlier today, he underwent an EGD by Dr. Ramírez that showed a small healing duodenal ulcer and a large healing duodenal ulcer that was otherwise remarkable according to the condensed version available for review. Dr. Ramírez recommended checking stools for hidden blood and a colonoscopy in a day or two or should it look like he is continuing to bleed. The patient was n.p.o. except for meds past midnight, and did have breakthrough rapid atrial fibrillation with rates in the 150s. He was seen in Cardiology consultation and placed on amiodarone IV piggyback. Neurology consultation was completed and the neurologist recommended simply that he receive 2 units of blood instead of 1 unit by transfusion. Neurologist also recommended some anticoagulation at least low dose, antiplatelet meds for AFib, choosing Plavix if there is no contraindication. MEDICATIONS AT [facility]: Humalog insulin, metoprolol tartrate 75 mg twice daily, aspirin 81 mg daily, tamsulosin 0.4 mg in the morning, metformin 500 mg twice daily, atorvastatin 40 mg daily, pantoprazole 40 mg twice daily, fluoxetine 20 mg daily for depression, Cardizem immediate release 30 mg 4 times daily, Ceftin ointment to his groin. Sliding scale Humalog insulin on the same custom scale he was used here, Xarelto 20 mg daily at dinner. [address] [address] HISTORY AND PHYSICAL Name: CASEDILEEP Room #: 216-P ADM IN M.R.#: [id number] Admission: 04/13/19 Attend Phys: Twin Swanson MD Discharge: Date of : 35 Report #: [id number] ALLERGIES: None known. REVIEW OF SYSTEMS: He does have a groin rash that felt to be from being incontinent of urine. Other than that, he denies any complaints. His daughter reports over the last several days, coincident with the dark stools. He has been more lethargic and not nearly as active. PHYSICAL EXAMINATION: VITAL SIGNS: His heart rate varied between 96 and 147. Blood pressure varied between 96/50 and 120/50. Respirations from 12 to 20. He is afebrile. GENERAL: He continues to have aphasia. He recognizes me. He has only single word responses that at times do not make sense. HEENT: Unremarkable. NECK: Negative. LUNGS: Clear. CARDIOVASCULAR: Heart tones are normal. The rhythm is irregularly irregular. ABDOMEN: Soft, nontender without hepatosplenomegaly or masses. NEUROLOGIC: The neurologist reports a minimal right-sided strength deficit and his aphasia has not changed from his previous stay here. EXTREMITIES: There is no edema, cyanosis or weakness in the extremities. LABORATORY DATA: His admitting albumin is very low at 1.9, qualifying for severe malnutrition. His admitting hemoglobin was low at 7.2, but this morning, it dropped overnight to 6.6. WBCs are unremarkable. Platelets are normal. Observed reticulocyte count is high at 7.70, but absolute retic count is in the normal range. ASSESSMENT: 1. Progressive lowering of his hemoglobin with a documented stool being Hemoccult positive. 2. Recent stroke with significant aphasia and very minimal right hemiparesis. 3. Atrial fibrillation. 4. Mild dementia and noncompliance resulted in an embolic stroke to the left middle cerebral artery territory. 5. Mild to moderate erythematous groin rash from urinary incontinence. 6. History of urine retention that responded to Flomax. 7. Type 2 diabetes visible. 8. A larger and a smaller healing ulcer of the proximal jejunum was identified today that is healing when compared with a study of 08/28/2018. 9. Type 2 diabetes and poor control with hemoglobin A1c of 7.4. 10. Moderate spinal stenosis, C5-C6 by CT scanning. 11. Severe stenosis of the origin of right vertebral artery and the left vertebral artery is quite small. 12. Moderate spinal stenosis C5-C6. [facility] [address] [place] [address] HISTORY AND PHYSICAL Name: CASE,DILEEP Lynch Room #: 216-P [facility] IN [facility].#: [id number] Admission: 04/13/19 Attend Phys: Twin Swanson MD Discharge: Date of : 35 Report #: [id number] PLAN: The patient was admitted last night to the coronary care unit for close monitoring. He currently is cleared to walk some around the unit if he wishes. He is on IV pantoprazole. His rapid atrial fib will be controlled by the Cardiology Department with a ____. He will have several stools checked for hidden blood and if these are positive, then consideration for a colonoscopy to identify the bleeding source will be had. He will have a speech therapy evaluation regarding his swallowing and his aphasia. Neurologist has requested 2 units of packed cells be transfused because of his recent stroke. The patient's daughter and power of sports attorney approached the nursing staff and requested that her father be made a no code blue in accordance with previously signed advance directive. He has had an episode of urine retention and his tamsulosin will be restarted. By: [phone] Twin Swanson MD /nt
[~2019-04-13 18:54] MED LIST changes: +ADULT LOW DOSE81 MG PO; +CARDIZEM30 MG PO; +LIPITOR40 MG PO; +LOPRESSOR25 PO; +PANTOPRAZOLE SO40 M1 PO; +XARELTO20 MG PO
[2019-04-13 18:55] VITALS: BP 114/46
[2019-04-13 19:25] LABS: HEMATOCRIT 22.3 % (42.0-52.0); HEMOGLOBIN 7.2 gm/dL (14.0-18.0); MCH 31.8 pg (26.0-34.0); MCHC 32.5 g/dL (28.0-37.0); PLATELET COUNT 340 thou/uL (150-400); RBC 2.27 mil/uL (4.50-6.00); RDW 21.4 % (10.5-14.5); WBC 10.6 thou/uL (4.0-11.0)
[2019-04-13 19:30] LABS: CALCIUM 7.9 mg/dL (8.5-10.1); POTASSIUM 4.1 mmol/L (3.5-5.1)
[2019-04-13 19:36] LABS: ALBUMIN 1.9 g/dL (3.4-5.0); TOTAL BILIRUBIN 0.6 mg/dL (<0.1-1.0); TOTAL PROTEIN 5.5 g/dL (6.4-8.2)
[2019-04-13 20:26] LABS: ABSOLUTE NEUTROPHILS 8.8 thou/uL (1.4-8.2)
[2019-04-13 20:27] LABS: ANISOCYTOSIS 2+; HYPOCHROMASIA 1+; POLYCHROMASIA OCCASIONAL
[2019-04-13 21:09] VITALS: BP 114/46
[2019-04-13 21:48] VITALS: BP 114/46
[2019-04-13 22:15] VITALS: BP 106/36
[2019-04-14] VITALS (7 sets, daily range): BP systolic 96–135; BP diastolic 45–84
--- NOTE | 2019-04-14 03:37 | NUR ---
PT ARRIVED ON THE UNIT AROUND 2200, PT IS DISORIENTEDX4, HX OF DEMENTIA AND RECENT STROKE, PT IS AWAKE CAN ONLY ANSWER YES OR NO QUESTIONS, PT DENIES SHAWN OR SOB, PT IS ON ROOM AIR, VITAL SIGNS STABLE, AFIB/BBB ON THE MONITOR, PT CONTINUES ON PROTONIX INFUSION AT THIS TIME, PT IS SLEEPING,NO CONCERNS AT THIS TIME, WILL CONTINUE TO MONITOR
[2019-04-14 06:36] LABS: HEMOGLOBIN 6.6 gm/dL (14.0-18.0)
[2019-04-14 06:39] LABS: ABSOLUTE NEUTROPHILS 8.1 thou/uL (1.4-8.2); ABSOLUTE RETIC COUNT 0.1589 10^6/uL; BASOPHILS 0.4 % (0.0-2.0); HEMATOCRIT 20.3 % (42.0-52.0); MCHC 32.5 g/dL (28.0-37.0); MCV 98.6 fL (80.0-100.0); MONOCYTES 3.9 % (1.0-8.0); PLATELET COUNT 304 thou/uL (150-400); POLYS 82.7 % (36.0-66.0); RBC 2.06 mil/uL (4.50-6.00); RDW 22.4 % (10.5-14.5); WBC 9.8 thou/uL (4.0-11.0)
[2019-04-14 06:55] LABS: % SATURATION 51 % (20-39); IRON 81 ug/dL (65-175); TIBC 158 ug/dL (250-450)
[2019-04-14 06:57] LABS: ALBUMIN 1.7 g/dL (3.4-5.0); CALCIUM 7.3 mg/dL (8.5-10.1); POTASSIUM 3.7 mmol/L (3.5-5.1); TOTAL BILIRUBIN 0.8 mg/dL (<0.1-1.0); TOTAL PROTEIN 4.9 g/dL (6.4-8.2)
[2019-04-14 07:27] LABS: FOLIC ACID 12.2 ng/mL (8.6-58.9)
--- NOTE | 2019-04-14 09:31 | NUR ---
Nutrition: recorded ht is inaccurate based in pt hx; BMI also incorrect.
--- NOTE | 2019-04-14 16:22 | NUR ---
Patient admits from [facility] for GI bleed. Sp with patient and family. Per Rn dtr Isabelle is DPOA. Patient with recent admits Mar 26- for stroke, DC to [facility]. Family reports they do not want to return to [facility]. Discussion of possibly home with care or skilled. Family reports patient able to ambulate with walker at [facility]. Patient resides at home with spouse and dtr to stay with them. One step to enter home and all needs on one level. Family reports all equiptment needed at home. Casemgt following.
--- NOTE | 2019-04-14 16:31 | NUR ---
FAXED CLINICAL UPDATE TO [facility] RECEIVED CONFIRMATION AND LEFT MSG WITH YOBANI IN ADM. DP TO FOLLOW.
[2019-04-14] MEDS ORDERED: HUMALOG100 UNIT/1 SUBQ (17:59)
[2019-04-14] MEDS ORDERED: LOPRESSOR50 MG PO (17:59)
[2019-04-14] MEDS ORDERED: FLOMAX0.4 MG PO (17:59)
[2019-04-14] MEDS ORDERED: GLUCOPHAGE500 MG PO (18:00)
[2019-04-14] MEDS ORDERED: PROZAC20 M1 PO (18:01)
[2019-04-14] MEDS ORDERED: VENOFER50 MG/2.5 IV (18:02)
[2019-04-14] MEDS ORDERED: CALMOSEPTINE O3.5 GM TOP (18:03)
[2019-04-14] MEDS ORDERED: GLUCOPHAGE1000 MG PO (18:04)
[2019-04-14] MEDS ORDERED: INTERMEZZO3.5 MG PO (18:05)
[2019-04-14] MEDS ORDERED: CORRECTOL5 M1 PO (18:06)
--- NOTE | 2019-04-14 20:06 | NUR ---
RECEIVED PT'S CARE AROUND 0705; PT. RESTING WITH EYES CLOSED; EQUAL CHEST RISING NOTICED; HH 6.6; TRANSFUSION ORDERS ON PLACE; DR. DE LA O ROUNDING ON PT; ORDERS RECEIVED; FLUIDS STARTED; PER DR. DE LA O HOLD BP MEDICATION & ASPIRING DUE TO POSSIBLE EGD; REQUESTED MEDICATION LIST; NO IN CHART; MEDICATION LIST REQUESTED; NEW IV STARTED OVER L. WRIST HAND; AROUND 0900 DAUGHTER AT THE BED SIDE; DPOA; PER MARIBETH PT. IS A DNR; NO NEW ORDERS FOR PROTONIX GTT; DURING AM MEDICATION PT. KEPT PILLS UNDER TONGUE; ENCOURAGE TO SWALLOW & PILLS TAKEN OUT FROM MOUTH; NEUROLOGIST ROUNDING; REQUESTED 2 UNITS RBC; ORDER UPDATE; DR. DE LA O PAGED; UPDATED; ORDERS RECEIVED; AROUND 1100 PT'S HR ON THE 120-140s; PHYSICIAN NOTIFIED; ORDERS RECEIVED; PODIATRY TEACHER CARDIOLOGY ROUNDING; D/C CARDIZEM PER ORDER; AMIODARONE BOLUS & DRIP STARTED; GONE FOR EGD AROUND 1400; CAME BACK TO FLOOR AROUND 1600; PODIATRY TEACHER GI CONTACTED; D/C PROTONIX GTT; MEDICATION LIST UPDATED; PT. NOT ABLE TO VOID AROUND 1750; BLADDER SCANNED SHOWED 350; PHYSICIAN NOTIFIED; DR. DE LA O ROUND ON PT AROUND 1840; VERBAL ORDER RECEIVED; STRAIGHT CATH PT; 375 ML OBTAINED; SECOND UNIT RUNING AT SHIFT; ASSESSMENT CHARGED; FOLLOWING POC; PASSED ON REPORT TO KATELYN [place];
[2019-04-15 00:11] VITALS: BP 116/68
--- NOTE | 2019-04-15 04:28 | NUR ---
ASSUMED CARE 1900. PT A0 X2. ABLE TO MAKE SOME NEEDS KNOW. VSS. AMIODARONE MAINTAINED 1T 1MG/HR. VSS. PERIOD TACHY EPISODE BUT DOES NOT SUSTAIN. A LITTLE CONFUSED OR HALLUSINATING OVERNIGHT. PT HAD BLACK DARK STOOL. SAMPLE COLLECTED. NO OTHER DISTRESS NOTED. WILL FOLLOW POC.
[2019-04-15 05:05] VITALS: BP 110/67
[2019-04-15 05:27] LABS: HEMATOCRIT 26.2 % (42.0-52.0); MCH 30.9 pg (26.0-34.0); MCHC 32.7 g/dL (28.0-37.0); MCV 94.6 fL (80.0-100.0); RBC 2.77 mil/uL (4.50-6.00); RDW 20.8 % (10.5-14.5); WBC 10.2 thou/uL (4.0-11.0)
[2019-04-15 05:36] LABS: CALCIUM 7.1 mg/dL (8.5-10.1); CREATININE 0.9 mg/dL (0.7-1.3); POTASSIUM 3.6 mmol/L (3.5-5.1)
[2019-04-15 05:45] LABS: HEMOGLOBIN 8.6 gm/dL (14.0-18.0)
[2019-04-15 07:30] VITALS: BP 105/62
--- NOTE | 2019-04-15 10:09 | NUR ---
dtr here this am and spoke with PT. She told therapy planning home with HH. Called dtr to confirm but her mailbox full. Will cont to follow.
[2019-04-15 16:50] VITALS: BP 112/58
--- NOTE | 2019-04-15 17:24 | NUR ---
ASSUMMED PT CARE AT APPROXIMATLEY 0700. PT AWAKE AND ORIENTED TO SELF AND TIME. PT'S BASELINE. HX OF STROKE. ASSESSMENT CHARTED. FALL PRECAUTIONS IN PLACE. PT DENIES HAVING CHEST PAIN. PT DENIES HAVING SOB. PT DENIES HAVING ACUTE PAIN. EDUCATED PT AND PT'S FAMILY ABOUT POC. PT AND PT'S FAMILY STATED UNDERSTANDING AND DENIED HAVING FURTHER QUESTIONS. MARY WATT DC. PT HR CONTROLED. PT HAS NOT HAD BLOODY STOOL THIS SHIFT. CONSENT SIGNED FOR PROCEDURE TOMORROW. PT AMBULATES STEADY C STANDBY ASSIST. PT COMFORTABLE. VITAL SIGNS STABLE. PT DENIES HAVING FURTHER CONCERNS.
[2019-04-15 19:51] VITALS: BP 121/71
[2019-04-16 03:52] VITALS: BP 125/60
--- NOTE | 2019-04-16 06:11 | NUR ---
PT A&O X1. ORIENTED TO SELF. ABLE TO ANSWER SOME BASIC QUESTIONS. DENIES PAIN.PT NPO AFTER MIDNIGHT FOR M2 SMALL INSTESTINAL VIDEO CAPSULE SWALLOW. INCONT OF B&B. PUREED DIET. MEDS CRUSHED WITH APPLESAUCE. NO BM OVERNITE TO ASSESS FOR BLEEDING
[2019-04-16 07:30] VITALS: BP 117/66
[2019-04-16 09:11] LABS: M-SPIKE Not Observed g/dL (Not Observed)
[2019-04-16 10:37] LABS: HEMOGLOBIN 9.9 gm/dL (14.0-18.0); MCH 30.7 pg (26.0-34.0); MCHC 31.9 g/dL (28.0-37.0); MCV 96.2 fL (80.0-100.0); RBC 3.22 mil/uL (4.50-6.00); RDW 23.7 % (10.5-14.5); WBC 14.5 thou/uL (4.0-11.0)
[2019-04-16 10:52] LABS: CALCIUM 7.5 mg/dL (8.5-10.1); CREATININE 0.9 mg/dL (0.7-1.3); POTASSIUM 3.5 mmol/L (3.5-5.1)
[2019-04-16 11:30] VITALS: BP 118/57
[2019-04-16 16:30] VITALS: BP 120/76
--- NOTE | 2019-04-16 18:22 | NUR ---
ASSUMED PT CARE AT APPROXIMATELY 0700. PT AWAKE AND ORIENTED TO SELF AND TIME. FREQUENT REORIENTATION PROVIDED. THIS IS PT'S BASELINE. ASSESSMENT CHARTED FALL PRECAUTIONS IN PLACE. PT DENIES HAVING CHEST PAIN. PT DENIES HAVING SOB. PT DENIES HAVING ACUTE PAIN. PT RECIEVED CAPSULE GI STUDY TODAY. PT'S BOX LIGHT BLINKING. FOLLOWING POST-PROCEDURAL DIET ORDERS. PER GI RN, CLEAR LIQUID DIET TILL 1920, THEN PT CAN HAVE PUREED DIET. RN STATED BOX CAN COME OFF PT AT 2320. EDUCATED CHIEF LIBRARIAN BRANCH RN OF POST-PROCEDURAL ORDERS. RN STATED UNDERSTANDING AND DENIED HAVING FURTHER CONCERNS. BOX IN PLACE. VITAL SIGNS STABLE. BLOOD SUGARS STABLE. DAUGHTER STATED PT IS DIABETIC AND USUALLY TAKES METFORMIN. CALLED DR. DE LA O. DR. DE LA O STATED PT COULD RESUME METFORMIN TONIGHT AND RESUME ACHS BLOOD SUGAR CHECKS. PT COMFORTABLE IN BED. PT DENIES HAVING FURTHER CONCERNS. ON ARRIVAL TO SHIFT AT 0700, I ASSESSED THAT PT'S L FOREARM IV WAS INFILTRATED. IV PROMPTLY REMOVED. L FOREARM ELEVATED C WARM COMPRESS THROUGHOUT THE SHIFT.
[2019-04-16 20:11] VITALS: BP 96/41
[2019-04-17 04:12] VITALS: BP 122/58
[2019-04-17 08:15] VITALS: BP 122/72
--- NOTE | 2019-04-17 08:25 | NUR ---
N0O EVENTS OVER NIGHT. DR RODRÍGUEZ NOTIED ABOUT THE M2 CAPSULE MACHINE. NO NEW ORDERS GIVEN. PT APPEAR COMFORTABLE. WILL CONTINUE TO MONITOR.
[2019-04-17 12:40] VITALS: BP 102/59
--- NOTE | 2019-04-17 12:59 | P ---
[facility] [place] [address] PROCEDURE REPORT Name: DILEEP DUBON Room #: 216-P [facility] IN ..#: [id number] Admission: 04/13/19 Attend Phys: Twin Swanson MD Discharge: Date of : 35 Report #: [id number] THIS REPORT FOR: cc: Twin Swanson MD, Stanley P. MD McElhinney, Christian C. MD ~ CC: Twin Swanson MD PROCEDURE PERFORMED: Upper endoscopy. HISTORY OF PRESENT ILLNESS: The patient is an 83-year-old male with a recent history of upper GI bleed due to duodenal ulcer. 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 At that time, the patient was on Xarelto and aspirin following his stroke. He then had rectal bleeding, which was described as dark. Bleeding scan at that time showed evidence of upper GI bleed. Dr. Aranda, my partner performed an EGD on 03/31/2019 showing bleeding duodenal ulcer with visible vessel. This was cauterized. The patient was started on PPI therapy and he has been at rehab. Hemoglobin dropped at the facility to 6.7. He was in the 7 range upon discharge. He also noted some dark stools again. Plan is for upper endoscopy. DESCRIPTION OF PROCEDURE: The risks and benefits of the procedure were explained to the patient's family, those risks including but not limited to bleeding, perforation, the risk of sedation. He understood these risks and gave informed consent. Sedation was given using propofol per anesthesia. Next, using a standard Olympus upper endoscope, the scope was placed in the patient's mouth and advanced under direct vision through the esophagus, stomach and into the second portion of the duodenum. The esophagus was normal throughout. The GE junction was normal. Overall, the gastric mucosa was normal. No evidence of blood. No evidence of erosions or ulcerations. The pylorus was normal and patent. In the distal duodenal bulb, the previous ulcer was noted. This was approximately 1.5 cm. It was clean white based. There was no blood, no clot, no visible vessel. A smaller 4 mm ulcer was seen in the first portion of the duodenum, also in the process of healing. No blood or visible vessel. The second portion of the duodenum was normal. Again, no evidence of blood on exam today. At this point, the scope was then withdrawn and the procedure terminated. The patient tolerated the procedure well. IMPRESSION: Healing duodenal ulcers as described above. No signs of bleeding at this time or recent bleeding. No evidence of old blood noted throughout the exam today. RECOMMENDATIONS: I would recommend observing the patient at this time. The patient is to receive blood transfusion today. If he has a drop in his hemoglobin, may need to consider colonoscopy. We will also Hemoccult test stools at this time and continue to monitor his hemoglobin closely. [address] [address] PROCEDURE REPORT Name: DILEEP DUBON Room #: 216-P ADM IN M.R.#: [id number] Admission: 04/13/19 Attend Phys: Twin Swanson MD Discharge: Date of : 35 Report #: [id number] Thank you for allowing me to participate in his care. <ELECTRONICALLY SIGNED> By: Darin Ramírez MD 04/17/19 1259 1536 2045 Darin Ramírez MD /nt
--- NOTE | 2019-04-17 14:43 | NUR ---
Visited with the pt, and son at bedside this afternoon. Pt fatigued and family awaiting results of the capsule study. They are concerned about possible continued bleeding and do not feel comfortable discussing dc planning efforts. They prefer home with HH vs going back to [facility]. Pt's son indicates that dtr Isabelle would be interested in [facility] as the home care provider. DC media planner / buyer to fax referral to [facility] to see if they take the pt's ins plan. DC timeframe is uncertain.
[2019-04-17 14:50] LABS: ABSOLUTE NEUTROPHILS 10.5 thou/uL (1.4-8.2); BASOPHILS 0.5 % (0.0-2.0); HEMATOCRIT 27.5 % (42.0-52.0); HEMOGLOBIN 8.9 gm/dL (14.0-18.0); MCH 30.8 pg (26.0-34.0); MCHC 32.3 g/dL (28.0-37.0); MCV 95.4 fL (80.0-100.0); MONOCYTES 5.8 % (1.0-8.0); PLATELET COUNT 243 thou/uL (150-400); POLYS 84.7 % (36.0-66.0); RBC 2.89 mil/uL (4.50-6.00); RDW 23.4 % (10.5-14.5); WBC 12.4 thou/uL (4.0-11.0)
[2019-04-17 15:03] LABS: CALCIUM 7.1 mg/dL (8.5-10.1); CREATININE 0.9 mg/dL (0.7-1.3); POTASSIUM 4.1 mmol/L (3.5-5.1)
--- NOTE | 2019-04-17 15:15 | NUR ---
FAXED REFERRAL TO [facility] SPOKE WITH AMANDEEP IN INTAKE THEY DO NOT TAKE PT'S INSURANCE. FAXED REFERRAL TO [facility] SPOKE WITH GISELA IN INTAKE SHE RECEIVED REFERRAL AND IS REVIEWING. DP TO FOLLOW.
[2019-04-17 16:24] VITALS: BP 102/59
--- NOTE | 2019-04-17 16:26 | NUR ---
FAXED REFERRAL TO [facility] SPOKE WITH YVONNE IN INTAKS SHE RECEIVED REFERRAL AND CAN ACCEPT AT DC. DP TO FOLLOW.
[2019-04-17 16:27] LABS: ANISOCYTOSIS 3+; POLYCHROMASIA OCCASIONAL
--- NOTE | 2019-04-17 17:03 | NUR ---
ASSUMED CARE OF PT AT SHIFT CHANGE, ALERT TO SELF, BDATE, HAD A FUNNY ANSWER FOR 'WHO'S THE PRESIDENT'. NOT SURE IF UNKNOWN AND COMPENSATING, OR JUST BEING HUMOROUS, VERY VERY [place]. ADVANCED CLINICAL SPECIALIST STATES THEY PULLED OFF CAMERA STUDY BELT AROUND 0100. PT IS A FOOD SET UP, HIS HAND PEWTER CASTER IS STRONG AND CAN FEED SELF IF WE OPEN UP EVERYTHING TO HELP ENSURE EASE. SPOKE TO DR. DE LA O AND WE ARE BLADDER SCANNING PT ONCE A SHIFT AND IF >300ML TO STRAIGHT CATH AND DO A UA. IF IT EVER EXCEEDS 300ML, GO AHEAD AND PLACE A JIMENEZ. WE DID IT ON OUR SHIFT AND HE WAS 240 ML. HAS WET CHUX AND IS DRIBBLING. ALSO CHANGE IN HIS MED ORDERS.SEE SEPARATE INTERVENTIONS FOR ASSESSMENTS. ENCOURAGED PT TO USE CALL LIGHT FOR NEEDS, AND HE IS NEEDS REMINDING/RETURN DEMO ON HOW TO USE
[2019-04-17 17:50] VITALS: BP 117/50
[2019-04-17 21:14] VITALS: BP 124/48
--- NOTE | 2019-04-18 02:24 | NUR ---
ASSESSMENT: PT REMAIN ALERT AND ORIENT TIMES 2, [place], PLEASANT AND FOLLOW COMMANDS. AFIB PER MONITOR. VSS, AFBRILE. EASY TO WORK WITH, DID I SAY PLEASANT PT. TOLERATING PO INTAKE. CAMERA CAPSULE COMPLETE. SLOW PROGRESS TOWARDS DC GOALS. WILL CONTINUE TO MONITOR.
[2019-04-18 05:05] LABS: HEMATOCRIT 27.1 % (42.0-52.0); HEMOGLOBIN 8.9 gm/dL (14.0-18.0); MCH 31.3 pg (26.0-34.0); MCHC 32.7 g/dL (28.0-37.0); MCV 95.5 fL (80.0-100.0); RBC 2.83 mil/uL (4.50-6.00); RDW 23.1 % (10.5-14.5)
[2019-04-18 06:00] VITALS: BP 122/52
[2019-04-18 07:55] VITALS: BP 118/52
[2019-04-18 12:01] VITALS: BP 119/56
[2019-04-18 15:50] VITALS: BP 115/64
--- NOTE | 2019-04-18 19:27 | NUR ---
ASSUMED CARE OF PT AT SHIFT CHANGE. ASSESSMENTS CHARTED. MEDS GIVEN PER APR. PT ALERT TO SELF, PLEASANT. PT INCONTINENT, SOAKED BED TWICE, NOW IN A BRIEF. THIS NURSE DISCOVERED PT IS POCKETING PILLS AND LATER SPITTING THEM ON THE FLOOR, MUST NOW CRUSH MEDS. FAMILY AT BEDSIDE MOST OF THE DAY. FAMILY AND DR CONSIDERING COLONOSCOPY. HGB STABLE AT THIS TIME. WILL CONTINUE TO MONITOR AND FOLLOW POC.
[2019-04-18 20:00] VITALS: BP 139/78
--- NOTE | 2019-04-18 22:35 | NUR ---
ASSUMED CARE OF PT AT SHIFT CHANGE; SLEEPING, WOKE GENTLY TO TAKE VS AND DO BLOOS SUGAR CHECK. HAD PT DAY PRIOR DURING DAY AND HE WAS SWEET NATURED. TONIGHT WAKING HIM CAUSED HIM SOME MINIMAL AGGRESSION AND CUSSING. ALLOWED VS, PULLED HAND AWAY REPEATEDLY FOR BLOOD SUGAR CHECK. ROOM AIR, VS WNL. SAT UP LONG ENOUGH TO TAKE HIS NIGHT MEDS WITH FURTHER CUSSING. GOT HIM SETTLED BACK IN FOR SLEEP. REPORT OF FREQUENTLY SOAKED BRIEFS FOR DAY. WILL HOLD OFF ON BVI CHECKS THIS SHIFT HE'S CONTINUED. INCREASE IN FLOMAX EFFECTIVE. NYSTATIN USED FOR RASH IN BILAT GROIN. ENCOURAGED PT TO USE CALL LIGHT FOR NEEDS. WILL CONTINUE TO MONITOR
[2019-04-18 23:50] VITALS: BP 118/58
[2019-04-19 04:57] VITALS: BP 121/64
[2019-04-19 08:00] VITALS: BP 126/49
[2019-04-19 11:30] VITALS: BP 128/54
[2019-04-19 16:15] VITALS: BP 118/55
--- NOTE | 2019-04-19 18:25 | NUR ---
ASSUMED CARE OF PT AT SHIFT CHANGE. ASSESSMENTS CHARTED. PT ALERT TO SELF. PT HAS DIFFICULTY WITH EXPRESSIVE APHASIA. PT POCKETS MEDS SO CRUSHING THEM WITH PUDDING, BUT PT WILL NOT EAT ALL THE PUDDING. BLADDER SCANNED SHOWING 226. PT APPEARS DEPRESSED/WITHDRAWN. WANTS TO GO HOME. FAMILY AT BEDSIDE MOST OF DAY. WILL CONTINUE TO MONITOR AND FOLLOW POC.
[2019-04-19 20:30] VITALS: BP 132/70; BP 137/58
[2019-04-20 04:45] VITALS: BP 115/43
[2019-04-20 07:00] VITALS: BP 107/46
--- NOTE | 2019-04-20 07:34 | NUR ---
ASSUMED PT CARE AROUND 1900. PT WAS RESTING IN BED WITH NO C/O PAIN, SOA, OR N/V/D. PT HAS EXPRESSIVE APHASIA AND WILL ANSWER SIMPLE QUESTIONS AND FOLLOWS DIRECTIONS WELL. PT TOOK MEDICATIONS WITH NO PROBLEM. WILL CONTINUE TO MONITOR PT PER PLAN OF CARE.
[2019-04-20 10:34] LABS: HEMATOCRIT 27.2 % (42.0-52.0); HEMOGLOBIN 8.9 gm/dL (14.0-18.0); MCH 31.3 pg (26.0-34.0); MCHC 32.7 g/dL (28.0-37.0); MCV 95.7 fL (80.0-100.0); RBC 2.84 mil/uL (4.50-6.00); RDW 22.3 % (10.5-14.5); WBC 7.5 thou/uL (4.0-11.0)
[2019-04-20 10:47] LABS: CALCIUM 7.4 mg/dL (8.5-10.1); POTASSIUM 3.9 mmol/L (3.5-5.1)
--- NOTE | 2019-04-20 10:50 | NUR ---
Assess due to length of stay. Admit with GIB, anemia-no further bleeding noted. Subacute CVA, pt [place] and difficulty answering questions. Kept stating "I don't know". Refused all meals yesterday, but other days eating 50-100% and 75-100% of supplements. ST following, requires puree diet. Noted a hot dog on bedside table-spoke with nursing and family had brought in-Encouraged staff to educate family on puree diet order. Threw hot dog in trash. Will offer magic cups in addition to ensure pudding for variety. Possible wt loss 11 lb over 10 months, no significant. No signs wasting. Low nutrition risk
[2019-04-20 11:40] VITALS: BP 117/61
[2019-04-20 16:00] VITALS: BP 130/44
--- NOTE | 2019-04-20 16:05 | NUR ---
ORIENTED TO SELF. VERY [place]. STRAY SETUP FOR BREAKFAST AND HE CAN FEED HIMSELF. GOOD APPETITE DESPITE WHAT FAMILY BELIEVE. CONSTANTLY INCONTINENT OF URINE, SKIN OF PERINEUM REDDENED, TREATED WITH NYSTATIN POWDER. FAMILY HERE, ANTICIPATING DISCHARGE TO HOME, BUT UNSURE HOW TO HANDLE THE INCONTINENCE. DR. MORALEZ DISCONTINUES THE TELE. HE IS IN CHRONIC AFIB. CLOSE TO NURSES' STATION. WILL CONTINUE TO FOLLOW CLOSELY.
--- NOTE | 2019-04-20 16:21 | NUR ---
Discussion with Isabelle dc home with HH vs skilled. Aware patient is weak. he strongly wants to return home. Dtr reports she will likely sp with Dr Swanson later. Family torn on decision regarding dc with HH/skilled. Dtr plans to review skilled list with brother and sp with casemgt in am
[2019-04-20 19:28] VITALS: BP 136/90
[2019-04-21 03:41] VITALS: BP 125/78
[2019-04-21 05:45] LABS: HEMATOCRIT 26.3 % (42.0-52.0); HEMOGLOBIN 8.6 gm/dL (14.0-18.0)
--- NOTE | 2019-04-21 05:54 | NUR ---
ASSUMED PT CARE AROUND 1920. PT WAS RESTING IN BED. PT HAS EXPRESSIVE APHASIA AND ABLE TO COMMUNICATE WITH DIRECT STATEMENTS. PT HAD NO C/O PAIN, SOA, N/V/D. PT HAD MINIMAL REST THRU NIGHT. WILL CONTINUE TO MONITOR PT PER PLAN OF CARE.
[2019-04-21 08:45] VITALS: BP 136/81
[2019-04-21 12:25] VITALS: BP 106/78
--- NOTE | 2019-04-21 14:47 | NUR ---
spoke at length with family x2 today. Reviewed skilled, Acute rehab and Home health in detail. At this time family requests referral to acute rehab. They are aware [facility] not in network. Dtr has not hearded good things regarding [facility]. [facility] to reeval.
--- NOTE | 2019-04-21 15:26 | NUR ---
FAXED REFERRAL TO [facility] SPOKE WITH YOBANI IN ADM SHE RECEIVED REFERRAL AND WILL SUBMIT FOR AUTHNiru CASTELLANOS TO FOLLOW.
--- NOTE | 2019-04-21 15:37 | NUR ---
[facility]. Updated dtruel Walton and updated Dr Swanson. Patient to move to [facility] today.
--- NOTE | 2019-04-21 15:37 | NUR ---
ASSESSMENT CHARTED. PT ALERT ORIENTED X2. VSS. DENIED HAVING PAIN OR DISCOMFORT. PARTICIPATED IN PT AND OT.UP IN THE CHAIR THIS AM. ORDERS GIVEN TO TRANSFER PT TO ROOM 458. PT AND FAMILY NOTIFIED. REPORT CALLED IN TO MARNIE ZEPEDA.
--- NOTE | 2019-04-21 18:15 | NUR ---
REceived pt from [facility], VS stable chronic Afib. Alert and oriented x 2 and is forgetful, expressive aphasia noted. Pt is steady when he transfered from wheel chair to the bed and is able to feed himself. Pt is able to commuicate when simple questiosn are asked. Perinium are slightly red, nystatin powder placed. Pending UA this was not collected in [facility] as per nurse since pt has not voided for them. Plan is to go to SNF or rehab. Medications need to be crushed and place in apple sauce, would take small bites at a time for his meals. POC followed, no signs or verbalizations of distress noted.
[2019-04-21 19:37] VITALS: BP 118/62
[2019-04-22 00:55] LABS: URINE BILIRUBIN NEGATIVE (Negative); URINE BLOOD 1+ (Negative); URINE CLARITY CLOUDY; URINE COLOR YELLOW; URINE GLUCOSE-RANDOM* NEGATIVE (Negative); URINE KETONES NEGATIVE (Negative); URINE NITRITE-REFLEX NEGATIVE (Negative); URINE PROTEIN (DIPSTICK) TRACE (Negative)
[2019-04-22 00:59] LABS: URINE LEUKOCYTES-REFLEX 2+ (Negative)
[2019-04-22 01:13] LABS: BACTERIA-REFLEX >30 Many /HPF (None Seen); CASTS None Seen /LPF (None Seen); CRYSTALS None Seen /LPF (None Seen); MUCUS 0-3 Light strn/LPF (None Seen); SQUAMOUS 0-3 Few /LPF (0-3); URINE RBC 3-10 Few /HPF (0-2); URINE WBC-REFLEX >25 Many /HPF (0-5); WBC CLUMPS Moderate (None Seen)
--- NOTE | 2019-04-22 03:30 | NUR ---
ASSUMED CARE OF PT AT 1900HRS. PT IS AOX3 AND AGREES TO LET NEEDS BE KNOWN. FALL PRECAUTION IN PLACE. PT IS [place]. PT HAS EXPRESSIVE APHASIA. PT HAS DIFFICULTY FINDING WORDS BUT CAN ANSWER YES/NO AND MULTIPLE CHOICE QUESTIONS. PT WAS ABLE TO GET COMFORTABLE AND SLEEP PART OF THE SHIFT. VSS AND NO S/S OF ACUTE DISTRESS. WILL CONTINUE TO MONITOR.
[2019-04-22 05:25] LABS: HEMATOCRIT 26.8 % (42.0-52.0); HEMOGLOBIN 8.8 gm/dL (14.0-18.0)
[2019-04-22 07:30] VITALS: BP 118/62
--- NOTE | 2019-04-22 15:11 | NUR ---
DISCHARGE ANTICIPATED TO [facility] PER UNIT SW. PATIENT THERAPY NOTES FAXED TO [facility] TODAY FOR INSURANCE AUTH PROCESS NEEDS. FOLLOWING. INSURANCE AUTH IS STILL PENDING AT THIS TIME.
--- NOTE | 2019-04-22 15:12 | NUR ---
PT A&OX4, VSS, DENIES PAIN. PT/OT IN TO WORK WITH PATIENT. PT UP TO RECLINER. PT HAS NO SIGNS OF DISTRESS. WILL CONTINUE TO MONITOR.
--- NOTE | 2019-04-22 16:23 | NUR ---
[facility] CALLAED AND INDICATED THAT THEY NEEDED BETTER PT AND OT NOTES AND THAT THEY NEEDED PHYSICIAN TO DOCUMENT ANTICPATED DISCHARGE DATE. CM TO NOTIFY CARE TEAM. CM TO FOLLOW INDICATED WITH DC PLANNING.
[2019-04-22 16:30] VITALS: BP 118/59
[2019-04-22 20:33] VITALS: BP 115/38
--- NOTE | 2019-04-23 04:31 | NUR ---
PROGRESS PT A/O X4, WITHDRAWN AND IRRITABLE. INCONTINENT OF BLADDER THIS SHIFT, PERIAREA IS RED AND EXCORIATED CLEANSED WITH BARRIER CREAM AND NYSTATIN APPLIED. TOOK MEDS CRUSHED IN APPLESAUCE WITHOUT DIFFICULTY. TOLERATES THIN LIQUIDS WITHOUT DIFFICULTY. REFUSED TO BE BLADDER SCANNED AT MIDNIGHT WILL ATTEMPT AGAIN THIS AM. HGB STABLE. DIASTOLIC PRESSURE RUNNING LOW 38 MIDNIGHT DILTIAZEM HELD. . PT DENIES SYMPTOMS SOB, DIZZINESS, CHEST PAIN. HAS HX OF CVA WITH EXPRESSIVE APHASIA BUT ANSWERS QUESTIONS WELL AND IS ABLE TO MAKE HIS NEEDS KNOWN.
[2019-04-23 04:45] VITALS: BP 141/61
[2019-04-23 05:56] LABS: HEMATOCRIT 28.9 % (42.0-52.0); HEMOGLOBIN 9.5 gm/dL (14.0-18.0)
--- NOTE | 2019-04-23 13:20 | NUR ---
PT A&OX, VSS, DENIES PAIN. PATIENT FRUSTRATED WITH NOT BEING ABLE TO COMMUNICATE NEEDS AND BEING INCONTINENT. PATIENT REFUSED OT THIS A.M. AND OT WILL TRY AGAIN THIS AFTERNOON. OTHER THAN THAT PATIENT COOPERATIVE. BOTTOM AND PERIAREA RED , APPLY BARRIER CREAM AND NYSTATIN. NO SIGNS OF DISTRESS. FAMILY AT BEDSIDE WILL CONTINUE TO MONITOR.
[2019-04-23 15:38] VITALS: BP 100/53
--- NOTE | 2019-04-23 15:42 | NUR ---
TODAYS THERAPY NOTES AND PHYSICIAN PROG NOTE FROM YESTERDY INDICATING THAT PT IS MEDICALLY STABLE TO DISHCARGE TO ACUTE REHAB WERE FAXED TO [facility] TO BE SUBMITTED TO INSURANCE FOR HOPEFUL AUTH. CM AWAITING RESPONSE.
--- NOTE | 2019-04-23 16:53 | NUR ---
WE RECIEVED AUTH FOR PT TO GO TO [facility] THIS DAY. CHART COPY MADE. ORDERS TO BE FAXED. REPORT TO BE CALLED TO . PT AND DTR MARICRUZ NOTIFIED AWARE AND AGREEABLE. WHEELCHAIR TRANSPORT ARRANGED FOR 1800. NO OTHER CM INTERVENTION INDICATED. CASE CLOSED.
[2019-04-23] MEDS ORDERED: NYAMYC15 GM TOP (18:06)
[2019-04-23] MEDS ORDERED: XARELTO15 MG PO (18:06)
[2019-04-23] MEDS ORDERED: PACERONE 200 M200 M1 PO (18:06)
[2019-04-23] MEDS ORDERED: HUMALOG100 UNIT/1 SUBQ (18:14)
--- NOTE | 2019-04-24 15:31 | EKG ---
[facility] [place] [address] ELECTROCARDIOGRAM REPORT Name: CASEDILEEP Room #: 458-P [facility] IN M.R.#: [id number] Admission: 04/13/19 Attend Phys: Twin Swanson MD Discharge: 04/23/19 Date of : 35 Report #: [id number] THIS REPORT FOR: cc: Twin Swanson MD, Stanley P. MD Lundgren, Craig H. 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 : 1935 Requested By: Edel Yun Order Number: [id number] MD: Vinh Sparks Measurements Intervals [place] Rate: 110 P: 0 CT: 170 QRS: 70 QRSD: 129 T: -52 QT: 372 QTc: 504 Interpretive Statements Atrial fibrillation ventricular premature complexes Right bundle branch block Nonspecific repol abnormality, lateral leads Compared to ECG 04/13/2019 19:06:19 Premature ventricular complexes are now present Electronically Signed On 04-14-2019 17:26:25 COUNTRY SALES MANAGER by Vinh Sparks [email or web address] <ELECTRONICALLY SIGNED> By: Vinh Sparks MD, FAC 04/14/19 1726 1431 1431 Vinh Sparks MD, FAC /EPI
--- NOTE | 2019-04-24 15:31 | EKG ---
[facility] [place] [address] ELECTROCARDIOGRAM REPORT Name: CASEDILEEP Room #: 458-P [facility] IN M.R.#: [id number] Admission: 04/13/19 Attend Phys: Twin Swanson MD Discharge: 04/23/19 Date of : 35 Report #: [id number] THIS REPORT FOR: cc: Twin Swanson MD, Stanley P. MD Couchonnal, Luis F. 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 : 1935 Requested By: Yakelin Orellana Order Number: [id number] MD: Duy Burciaga Measurements Intervals [place] Rate: 96 P: [place]: QRS: 45 QRSD: 134 T: -50 QT: 400 QTc: 506 Interpretive Statements Atrial fibrillation Right bundle branch block Repol abnrm suggests ischemia, diffuse leads Compared to ECG 03/26/2019 11:01:32 Early repolarization now present Possible ischemia still present Electronically Signed On 04-14-2019 8:09:00 AUTOMAT CAR ATTENDANT by Duy Burciaga [email or web address] <ELECTRONICALLY SIGNED> By: Duy Burciaga MD 04/14/19 0809 05 05 Duy Burciaga MD /EPI
--- NOTE | 2019-04-28 06:41 | P ---
[facility] [place] [address] PROCEDURE REPORT Name: DILEEP DUBON Room #: 458-P [facility] IN M.R.#: [id number] Admission: 04/13/19 Attend Phys: Twin Swanson MD Discharge: 04/23/19 Date of : 35 Report #: [id number] THIS REPORT FOR: cc: Twin Swanson MD, Stanley P. MD Graessle, Donna M. DO ~ CC: Twin Swanson MD PROCEDURE: M2 video capsule placement in the duodenum endoscopically. PATIENT OF: Dr. Twin Swanson. INDICATION FOR PROCEDURE: This patient has an iron deficiency anemia of undetermined etiology. He bled initially from 2 duodenal ulcers that we saw with visible vessels. Then, he bled second time and an EGD was repeated and the duodenal ulcers were healing with no visible vessels, so it was thought that there was a second lesion further down in the small intestine, so the video capsule has to be placed endoscopically as the patient is unable to swallow large pills. The patient has a recent stroke. The risks of extension of the stroke during the sedation and the actual procedure of placement of the M2 capsule was discussed with the patient and with his daughter as well as other physicians and caretakers involved in his care today. Everyone is on board and the family and the patient are agreeable and accepting the risk of this procedure to find out where the blood is coming from. Informed consent for this procedure was obtained prior to the administration of any medication. The risks of the procedure, which include bleeding, perforation, infection, complications of sedation and the possibility I could miss something, have been explained to the patient and he has indicated his consent by signing and his daughter has indicated her consent as well. Anesthesia kindly provided deep sedation for this procedure. DESCRIPTION OF PROCEDURE: With the patient in the left lateral decubitus position, the Olympus upper videoscope was introduced through the upper esophageal sphincter and advanced under direct visualization to the third portion of the duodenum. Findings are noted on withdrawal of the scope. The duodenal mucosa appears normal throughout its entirety except for the 2 healing duodenal ulcers in the postbulbar region of the duodenum. There is no visible vessel in either of these and they are white based. Pylorus, normal mucosa. Antrum, moderate erythema of the antrum of the stomach is noted. Body, moderate erythema is noted. Cardia and fundus, normal mucosa. Retroflex view did not reveal any abnormalities. The scope was withdrawn into the esophagus. Esophagus appears normal throughout its entirety. The scope was withdrawn. The M2 capsule was loaded on the front tip of the upper videoscope and then the entire introducer and scope were introduced through the patient's upper [address] [address] PROCEDURE REPORT Name: DILEEP DUBON Room #: 458-P [facility] IN M.R.#: [id number] Admission: 04/13/19 Attend Phys: Twin Swanson MD Discharge: 04/23/19 Date of : 35 Report #: [id number] esophageal sphincter and once again advanced down into the stomach and into the duodenal bulb where the M2 capsule was deployed. Then, the deployment device and the scope are withdrawn. The patient tolerated the procedure well. He went to the recovery room in stable condition. IMPRESSION: 1. Healing duodenal ulcers x 2 in the second portion of the duodenum or distal bulb. 2. Mild diffuse gastritis. 3. Successful placement of an M2 video capsule and duodenal bulb. RECOMMENDATIONS: Now are to await the results of the M2 capsule that have been downloaded tomorrow into the computers, so Dr. Ramírez can read it. The patient should continue on proton pump inhibitors for a total of 12 weeks and try to avoid aspirin and nonsteroidal anti-inflammatory medications. We will monitor his H and H closely. Thank you very much once again for allowing me to participate in his care. <ELECTRONICALLY SIGNED> By: Sara Paula DO 04/28/19 0641 1541 99 Sara Paula DO /nt
== END 2019-04-23 19:05 | DRG 377 ==
LOC: ER 18:54 → 2N 20:16 → EROBS 20:16 → 2N 21:49 → ENTRNSPT 04-21 15:21 → EDTRNSPTSTS 04-21 15:23 → 4W 04-21 15:37
PROVIDERS: Internal Medicine Hematology & Oncology; Nurse Practitioner; Nurse Practitioner Family; ADMIT Internal Medicine
PROC: 0DJ07ZZ Inspection of Upper Intestinal Tract, Via Natural or Artificial Opening (ICD-10-PCS; principal; 2019-04-13)
PROC: 30233N1 Transfusion of Nonautologous Red Blood Cells into Peripheral Vein, Percutaneous Approach (ICD-10-PCS; 2019-04-14)
PROC: 0DJ08ZZ Inspection of Upper Intestinal Tract, Via Natural or Artificial Opening Endoscopic (ICD-10-PCS; 2019-04-16)
DX: K25.4 Chronic or unspecified gastric ulcer with hemorrhage (principal); I63.9 Cerebral infarction, unspecified; E46 Unspecified protein-calorie malnutrition; I48.21 Permanent atrial fibrillation; D62 Acute posthemorrhagic anemia; R47.01 Aphasia; F32.9 Major depressive disorder, single episode, unspecified; K29.71 Gastritis, unspecified, with bleeding; M48.02 Spinal stenosis, cervical region; I10 Essential (primary) hypertension; N40.0 Benign prostatic hyperplasia without lower urinary tract symptoms; E78.5 Hyperlipidemia, unspecified; E78.00 Pure hypercholesterolemia, unspecified; R33.9 Retention of urine, unspecified; E11.65 Type 2 diabetes mellitus with hyperglycemia; R13.10 Dysphagia, unspecified; F03.90 Unspecified dementia, unspecified severity, without behavioral disturbance, psychotic disturbance, mood disturbance, and anxiety; Z91.19 Patient's noncompliance with other medical treatment and regimen; Z85.51 Personal history of malignant neoplasm of bladder; Z79.82 Long term (current) use of aspirin; Z79.899 Other long term (current) drug therapy; Z68.23 Body mass index [BMI] 23.0-23.9, adult; Z28.21 Immunization not carried out because of patient refusal
CPT/HCPCS: 10047; 10081; 62110; 62900; 70005

== ENCOUNTER → 2019-05-27 | Outpatient (CLI) | payer OTHER ==
[~2019-05-27] MED LIST changes: +CALMOSEPTINE O3.5 GM TOP; +CLARITIN10 M3 PO; +CORRECTOL5 M1 PO; +FLOMAX0.4 MG PO; +GLUCOPHAGE1000 MG PO; +GLUCOPHAGE500 MG PO; +HUMALOG100 UNIT/1 SUBQ; +INTERMEZZO3.5 MG PO; +LOPRESSOR50 MG PO; +MELATONIN3 M1 PO; +NYAMYC15 GM TOP; +OYSTER SHELL C500 MG PO; +PACERONE 200 M200 M1 PO; +PROAIR HFA8.5 GM INH; +PROZAC20 M1 PO; +TRADJENTA5 MG; +VENOFER50 MG/2.5 IV; +XARELTO15 MG PO; +[UNRECOGNIZED DRUG - OTHER] PO
== END ==
LOC: ULTRA 15:01 → RAD 15:01
DX: M19.072 Primary osteoarthritis, left ankle and foot (principal); R22.42 Localized swelling, mass and lump, left lower limb

== ENCOUNTER 2019-05-28 11:19 | Inpatient (IN) | payer MEDICARE ==
[~2019-05-28] VITALS: Ht 167.6 cm; Wt 62.6 kg
--- NOTE | ~2019-05-28 | HC ---
[facility] [place] [address] CONSULTATION Name: DILEEP DUBON Room #: 436-P [facility] M.R.#: [id number] Admission: 05/28/19 Attend Phys: Jennifer Kyle MD Discharge: Date of : 35 Report #: [id number] THIS REPORT FOR: cc: Twin Swanson MD, Stanley P. MD VanDenBerghe, Gregory R. MD ~ CC: Jennifer Swanson CHIEF COMPLAINT: Right knee pain. HISTORY OF PRESENT ILLNESS: The patient is a pleasant 83-year-old gentleman seen today for evaluation of his right knee. The patient has a history of recent CVA with left-sided weakness and aphasia. He has multiple underlying medical comorbidities, reports an approximate 4-day history of knee pain with mild swelling and has also been hospitalized for a UTI. The patient lives at home with his who has dementia and has assistance from their family. PAST MEDICAL HISTORY: Significant for anemia, anticoagulation with history of Coumadin and Xarelto, atrial fib, history of bacteremia due to E. coli, chronic kidney disease, CVA, history of multiple falls, GI bleed, pyelonephritis, sepsis, diabetes, upper GI bleed and weakness. ALLERGIES: No known drug allergies. PHYSICAL EXAMINATION: VITAL SIGNS: Temperature 36.8, pulse 80, respirations 16, BP 112/53, pulse ox 98% on room air. GENERAL: The patient is alert, answers questions to the best of his ability, appears to have some underlying dementia and localizes pain to the right knee. EXTREMITIES: Examination of the right knee reveals mild effusion, no significant warmth compared to the left. His range of motion is limited from 15-40 degrees due to pain, localizes no tenderness about the hip or proximal thigh. No obvious skin breakdown or abrasions are noted. Knee is stable to varus and valgus stresses at 30 degrees. Calf is soft and nontender. He is able to flex and extend the toes. No pain is localized with range of motion of the hip, knee, foot or ankle on the left side. His motion is limited due to pain on the right side. LABORATORY DATA: Reviewed. Initial white count was 11.8. Radiographs reveal moderate medial compartment knee arthrosis and varus alignment. Urine culture is positive for Klebsiella pneumoniae. IMPRESSION: 1. Right knee pain, effusion/hemarthrosis, medial compartment osteoarthritis. 2. Status post frequent falls with history of left-sided cerebrovascular [address] [address] CONSULTATION Name: DILEEP DUBON Room #: 436-P [facility] ..#: [id number] Admission: 05/28/19 Attend Phys: Jennifer Kyle MD Discharge: Date of : 35 Report #: [id number] accident. PLAN: We reviewed treatment options with the patient. He elected for an aspiration and injection, which was performed under sterile technique. Skin was infiltrated with 1% lidocaine and the knee was aspirated of a sanguinous effusion without signs of purulence of 40 cc. Depo-Medrol 40 mg was injected. The patient reported improvement in his knee symptoms following the hemarthrosis evacuation. We will allow patient to be weightbearing as tolerated and ambulate with assistance with Physical Therapy. Recommend walker and ambulation with assistance to reduce fall risk. We will continue to follow with you. The patient may follow up as an outpatient in the office for long-term management of his osteoarthritis. By: [id number] Jose Rothman MD /nt
[~2019-05-28 11:19] MED LIST changes: -CLARITIN10 M3 PO; -MELATONIN3 M1 PO; -OYSTER SHELL C500 MG PO; -PROAIR HFA8.5 GM INH; -TRADJENTA5 MG; -[UNRECOGNIZED DRUG - OTHER] PO
[2019-05-28 11:20] VITALS: BP 138/74
[2019-05-28 12:20] LABS: ABSOLUTE NEUTROPHILS 9.7 thou/uL (1.4-8.2); BASOPHILS 0.5 % (0.0-2.0); EOSINOPHILS 0.2 % (0.0-3.0); HEMOGLOBIN 10.5 gm/dL (14.0-18.0); LYMPHOCYTES 8.1 % (24.0-44.0); MCH 29.8 pg (26.0-34.0); MCHC 32.9 g/dL (28.0-37.0); MCV 90.7 fL (80.0-100.0); MONOCYTES 8.7 % (1.0-8.0); PLATELET COUNT 299 thou/uL (150-400); POLYS 82.5 % (36.0-66.0); RBC 3.53 mil/uL (4.50-6.00); WBC 11.8 thou/uL (4.0-11.0)
[2019-05-28 12:23] LABS: ANION GAP 14 mmol/L (7-16); BUN 25 mg/dL (7-18); CALCIUM 7.7 mg/dL (8.5-10.1); CHLORIDE 97 mmol/L (98-107); CO2 20 mmol/L (21-32); CREATININE 1.3 mg/dL (0.7-1.3); GLUCOSE 169 mg/dL (74-106); SODIUM 131 mmol/L (136-145)
[2019-05-28 12:28] LABS: URINE BILIRUBIN NEGATIVE (Negative); URINE BLOOD NEGATIVE (Negative); URINE CLARITY CLOUDY; URINE COLOR YELLOW; URINE GLUCOSE-RANDOM* NEGATIVE (Negative); URINE KETONES NEGATIVE (Negative); URINE LEUKOCYTES-REFLEX 2+ (Negative); URINE NITRITE-REFLEX NEGATIVE (Negative); URINE PROTEIN (DIPSTICK) NEGATIVE (Negative); URINE UROBILINOGEN 0.2 E.U./dl (0.2-1.0)
[2019-05-28 12:31] LABS: TROPONIN-I <0.06 ng/mL (<0.06)
[2019-05-28 12:32] LABS: POTASSIUM 3.9 mmol/L (3.5-5.1)
[2019-05-28] MEDS ORDERED: PROAIR HFA8.5 GM INH (12:32)
[2019-05-28] MEDS ORDERED: CLARITIN10 M3 PO (12:33)
[2019-05-28] MEDS ORDERED: CALMOSEPTINE O3.5 GM TOP (12:33)
[2019-05-28] MEDS ORDERED: [UNRECOGNIZED DRUG - OTHER] PO (12:34)
[2019-05-28] MEDS ORDERED: MELATONIN3 M1 PO (12:35)
[2019-05-28] MEDS ORDERED: TRADJENTA5 MG (12:37)
[2019-05-28] MEDS ORDERED: OYSTER SHELL C500 MG PO (12:37)
[2019-05-28] MEDS ORDERED: XARELTO15 MG PO (12:38)
[2019-05-28 12:56] LABS: APTT 40.9 Seconds (24.5-32.8); INR 1.4; PROTIME 14.7 Seconds (9.3-11.4)
--- NOTE | 2019-05-28 13:30 | EKG ---
[facility] [place] [address] ELECTROCARDIOGRAM REPORT Name: CASE,DILEEP Lynch Room #: REG [facility].#: [id number] Admission: 05/28/19 Attend Phys: Discharge: Date of : 35 Report #: [id number] THIS REPORT FOR: cc: Twin Swanson MD, Stanley P. 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: : 1935 Requested By: Ed Velez Order Number: [id number] MD: Vinh Sparks Measurements Intervals [place] Rate: 92 P: [place]: QRS: 78 QRSD: 134 T: -42 QT: 397 QTc: 492 Interpretive Statements Atrial fibrillation Right bundle branch block Baseline wander in lead(s) V6 Compared to ECG 04/14/2019 14:31:30 Ventricular premature complex(es) no longer present Electronically Signed On 05-28-2019 13:28:58 CDT by Vinh Sparks [email or web address] <ELECTRONICALLY SIGNED> By: Vinh Sparks MD, [facility] 05/28/19 1328 1215 1215 Vinh Sparks MD, [facility] /EPI
[2019-05-28 13:47] LABS: ANISOCYTOSIS 2+
[2019-05-28 13:52] LABS: BACTERIA-REFLEX >30 Many /HPF (None Seen); CASTS None Seen /LPF (None Seen); CRYSTALS None Seen /LPF (None Seen); SQUAMOUS None Seen /LPF (0-3); URINE RBC None Seen /HPF (0-2); URINE WBC-REFLEX >25 Many /HPF (0-5)
[2019-05-28 14:34] VITALS: BP 103/61
[2019-05-28 14:48] VITALS: BP 110/65
[2019-05-28 15:51] VITALS: BP 113/54
[2019-05-28 19:25] VITALS: BP 111/73
[2019-05-29 00:59] VITALS: BP 119/53
[2019-05-29 06:26] LABS: ABSOLUTE NEUTROPHILS 9.2 thou/uL (1.4-8.2); BASOPHILS 0.3 % (0.0-2.0); EOSINOPHILS 0.4 % (0.0-3.0); HEMATOCRIT 30.6 % (42.0-52.0); HEMOGLOBIN 10.2 gm/dL (14.0-18.0); LYMPHOCYTES 8.3 % (24.0-44.0); MCH 30.2 pg (26.0-34.0); MCHC 33.2 g/dL (28.0-37.0); MCV 90.8 fL (80.0-100.0); PLATELET COUNT 303 thou/uL (150-400); RBC 3.37 mil/uL (4.50-6.00); RDW 20.3 % (10.5-14.5); WBC 11.2 thou/uL (4.0-11.0)
[2019-05-29 06:46] LABS: CALCIUM 6.9 mg/dL (8.5-10.1); CREATININE 0.9 mg/dL (0.7-1.3); POTASSIUM 3.8 mmol/L (3.5-5.1)
[2019-05-29 06:53] LABS: MAGNESIUM 0.8 mg/dL (1.8-2.4)
[2019-05-29 07:07] VITALS: BP 119/50
[2019-05-29 15:16] VITALS: BP 117/63
[2019-05-29 19:11] VITALS: BP 100/48
[2019-05-30 04:07] VITALS: BP 94/54
[2019-05-30 09:20] VITALS: BP 112/53
[2019-05-30 15:44] VITALS: BP 114/49
[2019-05-30 20:00] VITALS: BP 112/47
[2019-05-31 04:20] VITALS: BP 117/50
[2019-05-31 06:10] LABS: ABSOLUTE NEUTROPHILS 8.2 thou/uL (1.4-8.2); BASOPHILS 0.2 % (0.0-2.0); EOSINOPHILS 0.3 % (0.0-3.0); HEMATOCRIT 26.8 % (42.0-52.0); HEMOGLOBIN 8.9 gm/dL (14.0-18.0); LYMPHOCYTES 9.4 % (24.0-44.0); MCH 30.2 pg (26.0-34.0); MCHC 33.1 g/dL (28.0-37.0); MCV 91.2 fL (80.0-100.0); MONOCYTES 7.4 % (1.0-8.0); PLATELET COUNT 271 thou/uL (150-400); POLYS 82.7 % (36.0-66.0); RBC 2.94 mil/uL (4.50-6.00); RDW 20.5 % (10.5-14.5); WBC 9.9 thou/uL (4.0-11.0)
[2019-05-31 06:30] LABS: ALBUMIN 1.8 g/dL (3.4-5.0); CALCIUM 7.4 mg/dL (8.5-10.1); CREATININE 0.9 mg/dL (0.7-1.3); MAGNESIUM 2.1 mg/dL (1.8-2.4); PHOSPHORUS 1.6 mg/dL (2.5-4.9); POTASSIUM 4.6 mmol/L (3.5-5.1); TOTAL BILIRUBIN 0.5 mg/dL (<0.1-1.0); TOTAL PROTEIN 5.9 g/dL (6.4-8.2)
[2019-05-31 07:16] VITALS: BP 112/61
[2019-05-31 15:18] VITALS: BP 123/52
[2019-05-31 19:50] VITALS: BP 140/70
[2019-06-01 04:08] LABS: GLYCOHEMOGLOBIN (HGB A1C) 6.8 % (4.8-5.6)
[2019-06-01 04:25] VITALS: BP 115/4
[2019-06-01 06:30] LABS: BASOPHILS 0.1 % (0.0-2.0); EOSINOPHILS 0.4 % (0.0-3.0); HEMATOCRIT 27.4 % (42.0-52.0); HEMOGLOBIN 9.3 gm/dL (14.0-18.0); MCH 30.9 pg (26.0-34.0); MCHC 33.9 g/dL (28.0-37.0); MCV 91.2 fL (80.0-100.0); MONOCYTES 7.3 % (1.0-8.0); PLATELET COUNT 260 thou/uL (150-400); POLYS 80.2 % (36.0-66.0); RDW 20.1 % (10.5-14.5)
[2019-06-01 06:44] LABS: ANION GAP 8 mmol/L (7-16); BUN 23 mg/dL (7-18); CALCIUM 7.9 mg/dL (8.5-10.1); CHLORIDE 102 mmol/L (98-107); CHOLESTEROL 83 mg/dL (<200); CO2 24 mmol/L (21-32); CREATININE 0.8 mg/dL (0.7-1.3); GLUCOSE 176 mg/dL (74-106); HDL CHOLESTEROL 28 mg/dL (>40); LDL CHOLESTEROL 48 mg/dL (<100); POTASSIUM 4.7 mmol/L (3.5-5.1); SODIUM 134 mmol/L (136-145); TRIGLYCERIDE 38 mg/dL (<150); VLDL 8 mg/dL (<40)
[2019-06-01 06:45] LABS: SERUM ASSESSMENT Clear
[2019-06-01 07:30] VITALS: BP 145/68
[2019-06-01 10:48] VITALS: BP 117/61
[2019-06-01] MEDS ORDERED: CARDIZEM CD120 MG PO (13:15)
[2019-06-01 16:05] VITALS: BP 122/66
[2019-06-01 19:25] VITALS: BP 133/70
[2019-06-02 04:30] VITALS: BP 120/57
[2019-06-02] MEDS ORDERED: HYDROCODON-ACE1 EAC7 PO (08:41)
[2019-06-02 10:16] VITALS: BP 121/53
[2019-06-02 10:25] VITALS: BP 121/53
[2019-06-02 10:26] VITALS: BP 121/53
== END 2019-06-02 14:36 | disposition hospice, home (50) | DRG 564 ==
LOC: ER 11:19 → 4S 14:48
PROVIDERS: Emergency Medicine; Internal Medicine; Nurse Practitioner; Nurse Practitioner Family; ADMIT Hospitalist
PROC: 0S9C3ZZ Drainage of Right Knee Joint, Percutaneous Approach (ICD-10-PCS; principal; 2019-05-30)
DX: M25.461 Effusion, right knee (principal); E43 Unspecified severe protein-calorie malnutrition; N39.0 Urinary tract infection, site not specified; M25.061 Hemarthrosis, right knee; I48.20 Chronic atrial fibrillation, unspecified; E87.2 Acidosis; I69.354 Hemiplegia and hemiparesis following cerebral infarction affecting left non-dominant side; F43.9 Reaction to severe stress, unspecified; B96.1 Klebsiella pneumoniae [K. pneumoniae] as the cause of diseases classified elsewhere; E83.51 Hypocalcemia; E83.52 Hypercalcemia; E78.00 Pure hypercholesterolemia, unspecified; Z66 Do not resuscitate; N18.9 Chronic kidney disease, unspecified; I12.9 Hypertensive chronic kidney disease with stage 1 through stage 4 chronic kidney disease, or unspecified chronic kidney disease; E11.22 Type 2 diabetes mellitus with diabetic chronic kidney disease; E78.5 Hyperlipidemia, unspecified; E83.42 Hypomagnesemia; Z51.5 Encounter for palliative care; F03.90 Unspecified dementia, unspecified severity, without behavioral disturbance, psychotic disturbance, mood disturbance, and anxiety; M17.11 Unilateral primary osteoarthritis, right knee; Z79.01 Long term (current) use of anticoagulants; Z79.899 Other long term (current) drug therapy; Z87.891 Personal history of nicotine dependence; Z68.22 Body mass index [BMI] 22.0-22.9, adult; I69.320 Aphasia following cerebral infarction
CPT/HCPCS: 10102